=== PATIENT | male | born 1955 | race Caucasian/White ===

== ENCOUNTER 2020-12-04 08:14 | Outpatient (RCR) | payer BC, SELFPAY ==
[2016-10-15 09:25] VITALS: BMI 28.8
[2020-12-04] MEDS: COVID-19 VACC, MRNA(PFIZER)/PF 30 MCG/0.3 ML SYRINGE IM (06:58)
[2020-12-25] MEDS: COVID-19 VACC, MRNA(PFIZER)/PF 30 MCG/0.3 ML SYRINGE IM (06:59)
== END 2020-12-04 23:59 ==
LOC: IMMUN 08:14
PROVIDERS: PCP Family Medicine; Visit Provider Family Medicine
DX: Z23 Encounter for immunization (principal)
CPT/HCPCS: 0001A; 0002A; 91300

== ENCOUNTER → 2023-12-12 | Outpatient (CLI) | payer MEDICARE, SELFPAY ==
--- NOTE | 2023-12-12 16:40 | RAD_ITS ---
HISTORY: presurgical for pacemaker insertion. TECHNIQUE: XR Chest 2 Views. COMPARISON: 10/14/2016. FINDINGS: CARDIOMEDIASTINAL BORDERS: Cardiac silhouette within normal limits in size. Mediastinal contour unremarkable. LUNGS: Mild atelectasis or scarring in the lung bases. PLEURA: No pleural effusion or pneumothorax seen. OSSEOUS STRUCTURES: Old left eighth rib fracture. RAD/Chest PA and Lateral IMPRESSION: No acute cardiopulmonary process identified. Electronically Signed: Enid Farrell MD at 8:52 EDT ,
[2023-12-12 17:20] LABS: Absolute Lymphocyte Count 1.53 X10^3/uL (0.83-4.51); Absolute Neutrophil Count 4.5 X10^3/uL (2.0-7.7); Basophil# 0.03 X10^3/uL; Basophil% 0.4 % (0-1); Eosinophil# 0.13 X10^3/uL; Eosinophils% 1.9 % (0-5); Hematocrit 41.2 % (40-54); Hemoglobin 14.1 g/dL (13.0-16.5); Lymphocyte # 1.53 X10^3/ul (0.83-4.51); Lymphocyte % 22.1 % (19-41); Mean Corp Hgb Conc 34.2 g/dL (32-36); Mean Corpuscular Hgb 34.6 pg (27.0-32.0); Mean Platelet Vol. 8.9 fl (6.2-12.0); Monocyte# 0.75 X10^3/uL; Monocyte% 10.8 % (0-10); NRBC Flagged by Analyzer 0 % (0-5); Neutrophil # 4.47 X10^3/uL (2.7-7.7); Neutrophil % 64.5 % (47-70); Platelet Count 174 K/mm3 (150-450); RBC Distribution Width CV 12.8 % (11.6-14.6); RBC Distribution Width SD 47.4 fl (35.1-43.9); Red Blood Count 4.08 M/mm3 (4.6-6.2); White Blood Count 6.9 K/mm3 (4.4-11.0)
[2023-12-12 18:13] LABS: Anion Gap 5 (5-15); BUN 17 mg/dL (7-18); BUN/Creat Ratio 12.1 RATIO (10-20); Calcium,Total 8.9 mg/dL (8.5-10.1); Chloride 106 mmol/L (98-107); Creatinine, Serum 1.41 mg/dL (0.70-1.30); EST Glomerular Filtration Rate 53 mL/min (>60); Est Glom Filt Rate - Afr Amer 65 mL/min (>60); Glucose 182 mg/dL (74-106); Potassium 4.1 mmol/L (3.5-5.1); Sodium Level 139 mmol/L (136-145)
== END | disposition home or self-care (01) ==
PROVIDERS: PCP Family Medicine; Referring Provider Internal Medicine Cardiovascular Disease; Visit Provider Internal Medicine Cardiovascular Disease
DX: I44.2 Atrioventricular block, complete (principal); Z93.0 Tracheostomy status; I49.9 Cardiac arrhythmia, unspecified; I10 Essential (primary) hypertension
CPT/HCPCS: 36415; 71046; 80048; 85025

== ENCOUNTER → 2023-12-14 | Outpatient (CLI) | payer MEDICARE, SELFPAY ==
--- NOTE | 2023-12-14 13:49 | ECHOCS_ITS ---
Reason For Study: AV Block Procedure This was a 2D Doppler, Color Flow transthoracic echocardiogram. Contrast injection was performed. Exam performed in department. Left Ventricle Normal LV size. Left ventricular systolic function is normal. The estimated ejection fraction is 65 %. No regional wall motion abnormalities noted. Right Ventricle Normal RV size. Normal systolic function. Atria Normal left atrium. Normal right atrium. Mitral Valve Normal mitral valve. Tricuspid Valve Normal tricuspid valve. Mild to moderate (1-2+) tricuspid valve insufficiency. Pulmonary artery systolic pressure is 42 mmHg. Aortic Valve Trisinus/trileaflet aortic valve. Mild focal aortic valve calcification. Pulmonic Valve Normal pulmonic valve. Great Vessels Normal aortic root. The pulmonary artery is normal size. Normal inferior vena cava. Pericardium/Pleural No pericardial effusion. Medication Diluted definity 2ml given slow IV push to enhance endocardial definition. MMode/2D Measurements & Calculations LVIDd: 5.1 cm IVSd: 0.88 cm Ao root diam: 3.0 cm LVIDs: 2.9 cm LVPWd: 0.88 cm RVDd: 4.0 cm FS: 42.6 % LAV(MOD-bp): 54.8 ml LVAd ap4: 29.2 cm2 SV(MOD-sp4): 60.8 ml LAV(MOD-bp) Indexed: 24.0 ml/m2 LVLd ap4: 7.8 cm LAV(MOD-sp2): 69.3 ml EDV(MOD-sp4): 88.6 ml LAV(MOD-sp4): 43.4 ml EDV(sp4-el): 92.6 ml LVAs ap4: 14.7 cm2 LVLs ap4: 6.5 cm ESV(MOD-sp4): 27.8 ml ESV(sp4-el): 28.0 ml EF(MOD-sp4): 68.6 % EF(sp4-el): 69.8 % SV(sp4-el): 64.6 ml LA A4 area: 17.6 cm2 LA dimension(2D): 4.1 cm RA A4 area: 17.2 cm2 TAPSE: 2.6 cm Time Measurements MV dec time: 0.17 sec Doppler Measurements & Calculations MV E max lencho: 127.9 cm/sec Lat Peak E' Lencho: 11.1 cm/sec Med Peak E' Lencho: 9.4 cm/sec MV A max lencho: 83.1 cm/sec E/E' lat: 11.5 E/E' med: 13.6 MV E/A: 1.5 MV dec slope: 817.1 cm/sec2 Ao V2 max: 175.8 cm/sec LV V1 max: 133.6 cm/sec Ao max P.4 mmHg LV V1 max P.1 mmHg Ao V2 mean: 111.1 cm/sec Ao mean P.8 mmHg Ao V2 VTI: 38.9 cm PA V2 max: 101.6 cm/sec TR max lencho: 309.9 cm/sec TR max P.4 mmHg ECHO/Echo Complete W/ Contrast Interpretation Summary Normal LV size. Left ventricular systolic function is normal. The estimated ejection fraction is 65 %. Pulmonary artery systolic pressure is 42 mmHg. Contrast injection was performed. Ordering Physician: Renny Glover Referring Physician: Santos Davis Performed By: Arleth Scott, RDCS, RVT
== END | disposition home or self-care (01) ==
LOC: CVS 13:48
PROVIDERS: PCP Family Medicine; Referring Provider Internal Medicine Cardiovascular Disease; Visit Provider Internal Medicine Cardiovascular Disease
DX: I44.2 Atrioventricular block, complete (principal)
CPT/HCPCS: 93306; Q9957; A4216; C8929

== ENCOUNTER 2023-12-16 10:25 | Observation (INO) | payer MEDICARE, SELFPAY ==
[2023-12-15 09:09] VITALS: BMI 31.8
[2023-12-15 10:18] LABS: Bacteria 0 SEEN /hpf (None Seen); Mucous, Urine 0 SEEN /hpf (<or=2+); Red Blood Cells-Urine 0 SEEN /hpf (0-5); Squamous Epithelial Cells - UA 0 SEEN /hpf (0-5); White Blood Cells 0 SEEN /hpf (0-5)
[2023-12-15 11:17] LABS: Color, Urine Yellow (Yellow); Glucose, Dipstick 250 mg/dl (Normal); Ketone-Dipstick Negative (Negative); Leukocyte Esterase-Dipstick Negative /ul (Negative); Nitrite-Dipstick Negative (Negative); Occult Blood-Urine Negative /ul (Negative); Protein-Dipstick 30 mg/dl (Negative); Specific Gravity, Urine 1.005 (1.002-1.030); Urine Bilirubin Dipstick Negative (Negative); Urine Clarity Clear (Clear); Urine Urobilinogen Normal (Normal)
--- NOTE | 2023-12-16 10:45 | CL.IE_ITS ---
Patient: DULCE HORTON Study Date: 12/16/2023 Performing: Renny Glover MD : [id number] Age: 67 Gender: male PROCEDURES PERFORMED LP04-([id number])INITIAL PACER INSERT+DUAL LEADS INDICATIONS Atrial fibrillation and complete heart block PROCEDURE DETAILS The patient was brought to the Catheterization Lab in the postabsorptive nonsedated state. Informed consent was obtained prior to the procedure. Local anesthetic was given subcutaneously to the left subclavian region with Lidocaine 2%. Access was achieved and a guidewire was advanced into the left subclavian vein. Incision was made to the left subclavicular area. A peel-away sheath was inserted into the left subclavian vein. PPM ventricular lead was inserted / positioned to right ventricular apex. The sheath was then removed. PPM ventricular lead testing performed. PPM ventricular lead testing performed. A peel-away sheath was inserted into the left subclavian vein. PPM atrial lead was inserted / positioned to the right atrial appendage. The sheath was then removed. PPM atrial lead testing performed. PPM atrial lead was repositioned and checked. PPM atrial lead was repositioned and checked. The Ventricular PM lead sutured in place with 2-0 Silk. The Atrial lead sutured in place with 2-0 Silk. Device pocket was irrigated with antibiotic. PPM generator was attached to the lead(s) and inserted into the pocket. The PPM generator was sutured in place with 2-0 Silk. Subcutaneous closure was completed with 3-0 Vicryl. PPM generator was then interrogated by the edi programmer. Skin closure was completed with 4-0 Vicryl. Steri-strips applied to left subclavicular incision. The patient tolerated the procedure well. Estimated Blood Loss: 20 ml's IMPLANTED / EX-PLANTED DEVICES IMPLANTED DEVICE(S): PPM Ventricular lead - Vice Principal: SDI, Model # INGEVITY , Serial # [id number] PPM Atrial lead - Vice Principal: [employer], Model # INGEVITY , Serial # [id number] PPM Generator - Vice Principal: SDI, Model # ESSENTION MRI DR MODELL L111 , Serial # [id number] DEVICE PARAMETERS ATRIAL LEAD PARAMETERS: P wave- 0.5 (mV) Current- 1.3 (mA) threshold- 0.70 (V) impedence- 543 (OHMS) VENTRICULAR LEAD PARAMETERS: R wave- 3.5 (mV) Current- 0.8 (mA) threshold- 0.6 (V) impedence- 740 (OHMS) DEVICE PARAMETERS: Mode- DDD Lower rate- 60 Upper rate- 130 CONCLUSIONS / RECOMMENDATIONS Device Conclusions: Successful implantation of a dual chamber pacemaker Device Recommendations: Follow up with Primary Care Physician PROCEDURE MEDICATIONS Fentanyl 50 mcg IV Versed 1 mg IV Versed 1 mg IV Oxygen: 2 L/min via trach collar Antibiotic given in appropriate timeframe. Ancef 2 Gm IV @ 12/16/2023 09:02:29 Signed By Renny Glover MD On 12/16/2023 10:44:21 Renny Glover MD
[2023-12-16 10:56] VITALS: BP 185/97; PULSE 91; RESP 16; TEMP 36.7; O2SAT 100; BMI 31.8
--- NOTE | 2023-12-16 16:47 | DCINST_ITS ---
Discharge Instructions Diet Discharge Diet: No restrictions (as you feel able. No excessive stretching. No lifting your arm over your head (keep elbow below shoulder level) until seen for your pacemaker check. Do not lift your elbow away from your side until you are seen for your first visit. Keep the arm sling on if it helps remind you not to lift your arm.) Activity Discharge Activity: May Not Drive May shower in (days): 2 Additional Activity Instructions:: May shower or bathe on [day 3]. Do not scrub the incision or soak in the tub. Just wash with soap and let the water run over the incision. Gently pat dry with towel. Medications: Take your pain medication as directed. Refer to your discharge instruction sheet for a list of medications you are to take. Dressing / Incision Call your doctor if your incision/area has: Continuous Slow Oozing, Sudden Increased Bleeding, Increased Pain/ Swelling, Increased Redness, Foul Smelling Discharge and Swelling at the incision site Call your doctor if you observe: Fever of 101 or Higher, Shortness of breath, Dizziness, Fainting spells, Swelling in the ankles, Chest pain, Prolonged hiccupping and Increased palpitations (irregular heartbeat) Suture Line Care: Avoid Pulling/Pushing and Avoid Pinching/Bending Cleanse incision/area with: Keep Dressing Clean & Dry Additional Dressing/Incision Instructions:: When dressing is removed, wash and dry incision. Keep covered with a light bandage if it is rubbing against your clothing. Do not cover the incision with an airtight bandage. Change the bandage daily. Do not remove steri strips. The strips will fall off on their own. Follow Up Care Please Follow Up With: Renny lGover MD When: Pacer follow-up on December 27 at 9 AM of the [facility] office Test Results: Test results from this visit will be discussed in further detail at your follow- up appointment, if applicable. Discharge Plan Admission Admit Date/Time: 12/16/23 10:25 Attending Provider: Renny Glover Primary Care Provider: Santos Davis Discharge Orders/Prescriptions Prescriptions: No Action levothyroxine 88 mcg capsule 88 mcg PO DAILY metformin 500 mg tablet 500 mg PO DAILY spironolactone 50 mg tablet 50 mg PO DAILY aspirin 81 mg tablet,delayed release (DR/EC) 162 mg PO DAILY [id number]-fish oil 300-500 mg capsule 1 cap PO DAILY multivitamin Tablet 1 tab PO DAILY amlodipine 5 mg tablet 5 mg PO DAILY lisinopril [Zestril] 40 MG tablet 40 mg PO DAILY Patient Comments: blood pressure Referrals / Follow Up: Santos Davis MD [Primary Care Provider] -
[2023-12-16] MEDS: Lisinopril 40 MG Tablet PO (18:11)
[2023-12-16] MEDS: amLODIPine 5 MG Tablet PO (18:11)
[2023-12-16 21:44] VITALS: BP 175/85; PULSE 88; RESP 16; TEMP 37.3; O2SAT 95
[2023-12-17 04:37] VITALS: BP 145/80; PULSE 82; RESP 16; TEMP 36.6; O2SAT 95
--- NOTE | 2023-12-17 04:48 | RAD_ITS ---
HISTORY: Post permanent ICD/Pacemaker -- inspiration/expiration. Arms Down. Wet read to . TECHNIQUE: XR Chest 2 Views. COMPARISON: 12/12/2023. FINDINGS: CARDIOMEDIASTINAL BORDERS: Cardiac silhouette within normal limits in size. Mediastinal contour unremarkable. Pacemaker generator in the left chest wall with lead extending to the expected region of the right atrium and right ventricle, with nondiagnostic lateral view of the pacemaker due to upper extremity positioning. LUNGS: Coarse chronic interstitial markings the lungs again seen. PLEURA: No pleural effusion or pneumothorax seen. OSSEOUS STRUCTURES: Mild degenerative change. RAD/Chest PA and Lateral IMPRESSION: Satisfactory appearance of pacemaker. Electronically Signed: Enid Farrell MD at 15:53 EDT ,
[2023-12-17 08:21] VITALS: BP 175/85; PULSE 96; RESP 16; TEMP 37.1; O2SAT 94
[2023-12-17] MEDS: amLODIPine 5 MG Tablet PO (08:25)
[2023-12-17] MEDS: Spironolactone 50 MG Tablet PO (08:26)
[2023-12-17] MEDS: metFORMIN (XR) 500 MG Tablet PO (08:26)
[2023-12-17] MEDS: Levothyroxine 88 MCG Tablet PO (08:26)
[2023-12-17] MEDS: Lisinopril 40 MG Tablet PO (08:26)
[2023-12-17] MEDS: Aspirin E.C. 81 MG Tablet 162 MG PO (08:26)
== END 2023-12-17 10:14 | disposition home or self-care (01) ==
LOC: PCU 10:52
PROVIDERS: Admitting Provider Internal Medicine Cardiovascular Disease; PCP Family Medicine; Referring Provider Family Medicine; Visit Provider Internal Medicine Cardiovascular Disease
DX: Z45.018 Encounter for adjustment and management of other part of cardiac pacemaker (principal); Z93.0 Tracheostomy status; I48.91 Unspecified atrial fibrillation; I44.2 Atrioventricular block, complete; I10 Essential (primary) hypertension; I45.10 Unspecified right bundle-branch block; Z79.899 Other long term (current) drug therapy; Z79.84 Long term (current) use of oral hypoglycemic drugs; Z79.82 Long term (current) use of aspirin; R73.9 Hyperglycemia, unspecified; Z87.891 Personal history of nicotine dependence
CPT/HCPCS: 33208; 71046; 81001; 99152; 99153; 99221; 99406; J7040; J7050; C1894; G0378

== ENCOUNTER 2024-02-22 14:30 | Outpatient (RCR) | payer MEDICARE, SELFPAY ==
[2024-02-17 08:20] VITALS: BP 167/76; PULSE 104; RESP 18; TEMP 36.8; BMI 66.6
--- NOTE | 2024-02-17 12:09 | PCM.WC.HP ---
History of Present Illness Date of Service: 02/17/24 Chief Complaint: left chest non-healing surgical wound History of Wound: Primitivo is a 68 yo gentleman that presents to the wound healing center today for evaluation and treatment of a left chest wall surgical wound that has opened after suture removal and is not healing. This is at the site of a pacemaker placement on 12/16/2023 at [facility] by Dr. Glover. He noted drainage and possible infection and went to ER at [facility] on 01/25/2024. He was started on IV antibiotics with Vancomycin and the battery and pacemaker leads were removed and debridement of the pocket was done on 01/27/2024 and a temporary pacemaker was placed in his right chest. The new battery was placed in his right chest on 02/01/2024. He was switched to Ancef while in the hospital for MSSA once cultures were back from removal of the original pacemaker of his left chest wall and discharged on Cefadroxil orally to be completed on 02/10/24. He was seen on 02/14/2024 by Janae Mcduffie and his sutures were removed (4). The pocket was draining brown/bloody fluid and he was referred for treatment by Janae Mcduffie. He has been using bandage to keep the wound covered and cleaned it with surgical scrub. Primitivo reports not having any problems with wound healing in the past and the right chest wall incision from the more recent pacemaker battery placement is healing well. He does have a history of diabetes that is controlled with diet and he is not able to recall his most recent A1C. 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 [facility] Medical History Laryngeal squamous cell carcinoma Presence of cardiac pacemaker Tracheostomy dependent Complete heart block Ventricular arrhythmia Essential (primary) hypertension Hyperglycemia Allergic rhinitis Home Medications ?Medication ?Instructions ?Recorded ?Last Taken ?Type lisinopril 40 mg tablet (Zestril) 40 mg PO DAILY 10/15/16 12/16/23 History amlodipine 5 mg tablet 5 mg PO DAILY 12/12/23 12/16/23 History aspirin 81 mg tablet,delayed 162 mg PO DAILY 12/12/23 Unknown History release levothyroxine 88 mcg capsule 88 mcg PO DAILY 12/12/23 12/16/23 History metformin 500 mg tablet 500 mg PO DAILY 12/12/23 Unknown History multivitamin 1 tab PO DAILY 12/12/23 Unknown History omega-3s 300 dj-hyo-qyh-other 1 cap PO DAILY 12/12/23 Unknown History [id number] oil 500 mg capsule spironolactone 50 mg tablet 50 mg PO DAILY 12/12/23 12/16/23 History Allergy/AdvReac Type Severity Reaction Status Date / Time No Known Allergies Allergy Verified 12/12/23 15:38 Family History Other CHF (congestive heart failure) Heart disease Surgical History Hx of tonsillectomy Social History Smoking Status: Former smoker Tobacco: How many years used: 35 alcohol intake: current alcohol intake frequency: 0-2 drinks per day Alcohol type: beer details: 21 cans of beer (12 oz) per week substance use type: does not use ROS Constitutional Constitutional: Denies chills, fatigue or fever(s) Eyes Eyes: Denies blurry vision, change in vision or loss of vision ENT HEENT: Denies dysphagia, hearing loss or sore throat Cardiovascular Cardiovascular: Denies chest pain, edema or palpitations Respiratory/Chest Respiratory/Chest: Denies dry cough, dyspnea, dyspnea on exertion, productive cough or wheezing Gastrointestinal Gastrointestinal: Denies diarrhea, nausea or vomiting Genitourinary Genitourinary: Denies dysuria or polyuria Musculoskeletal Musculoskeletal: Denies arthralgias, joint stiffness or muscle weakness Integumentary Integumentary: Reports erythema and wounds Neurologic Neurologic: Denies dizziness, memory loss or weakness Psychiatric Psychiatric: Denies homicidal ideation or suicidal ideation Endocrine Endocrinology: Denies polydipsia, polyphagia or polyuria Hematologic/Lymphatic Hematologic/Lymphatic: Denies easy bleeding or easy bruising Allergic/Immunologic Allergic/Immunologic: Denies throat swelling, tongue swelling or urticaria Vital Signs Vital Signs Vital Signs: 02/17/24 08:20 Temperature 98.3 F Temperature Source Temporal Pulse Rate 104 H Respiratory Rate 18 Blood Pressure 167/76 H Blood Pressure Mean 106 Blood Pressure Source Monitor Blood Pressure Position Sitting Blood Pressure Location Left Arm Oxygen Delivery Method Room Air Weight Weight: 223 kg Body Mass Index (BMI) 66.6 Physical Exam Const alert, oriented x3 and no apparent distress General Appearance: cooperative and comfortable HEENT normocephalic and head/scalp atraumatic Chest Chest: wounds and left pectoral incision Resp normal respiratory effort Effort and Inspection: able to speak in complete sentences Cardio regular rate and regular rhythm Skin Wounds: wounds noted Wound Narrative: as in clinical panel Psych mental status grossly normal, thought process normal, cooperative and affect normal Debridement Note Debridement Note Wound debrided: left upper chest Laterality: Left Type of Debridement: Excisional debridement Anesthesia Used: 4% Lidocaine Solution and Cetacaine Depth: Down to and including healthy tissue, in the subcutaneous layer and to muscle Percentage of wound debrided: 100 Instrument Used: 5mm curette, #15 blade and Forceps Tissue Removed: Yellow slough, devitalized tissue Severity: Fat Layer Exposed Amount of bleeding with debridement: Mild Bleeding Controlled with: Compression and gauze Patient tolerated procedure: Patient tolerated procedure well Post-Debridement Measurements and Additional Note: Post-Debridement Measurements/Treatment WC - Nurse 1 - General Ulcer Assessment Start: 02/17/24 08:20 Freq: Status: Active Protocol: AMARI.LOWARGELIAT Activity Type Activity Date Activity User E-sign Co-sign Detail Recorded Client Recorded Date Recorded By Document 02/17/24 08:20 KW wound care 02/17/24 08:30 KW 02/17/24 08:20 WC - Today's Visit Information Type of service Follow-up Visit (Physician/CHILD NUTRITION ASSISTANT ) Arrival Mode Ambulatory Patient Identification Verified (Name & Yes ) Height and Weight Height 6 ft Weight 223 kg Weight in Pounds 491.6 lbs Weight Measurement Method Estimated by Patient Body Mass Index (BMI) 66.6 BMI Classification Obese BSA - Monty 3.12 Vital Signs Temperature (97.8 F-99.1 F) 98.3 F Temperature Source Temporal Pulse Rate (60-100) 104 H Pulse Location Monitor Respiratory Rate (12-18) 18 Respiratory rate source Observation Oxygen Delivery Method Room Air Blood Pressure (90/60-120/80) 167/76 H Blood Pressure Mean 106 Source Monitor Position Sitting Blood Pressure Location Left Arm History Since Last Visit- (Skip if this is Patient's initial visit) Left Footwear Regular Shoe Right Footwear Regular Shoe Pain Scale: 0-10 Numeric Is Patient Pain Free? Yes WC - Nurse 1 - General Ulcer Measurement Start: 02/17/24 08:20 Freq: Status: Active Protocol: Activity Type Activity Date Activity User E-sign Co-sign Detail Recorded Client Recorded Date Recorded By Document 02/17/24 08:20 KW wound care 02/17/24 08:30 KW 02/17/24 08:20 Wound Center Nurse 1 #1 POST OP CHEST INCISION -Current Size (cm) - Length 3.8 -Current Size (cm) - Width 0.6 -Current Size (cm) - Depth 1 -Total Square Cm 2.28 -Date of Last Picture (Recall this 02/17/24 field) -Circular Undermining Yes -Exudate Amt Small -Exudate Type Serosanguineous -Wound Margin Distinct, Outline Attached -Granulation Amt Large (67-100%) -Granulation Quality Red -Necrosis Amt Medium (34-66%) -Necrotic Tissue Type Adherent Slough -Texture ([place]-wound Skin Appearance) Assessed -Moisture ([place]-wound Skin Appearance) Assessed -Color ([place]-wound Skin Appearance) Assessed -Temperature ([place]-wound Skin No Abnormality Appearance) (Pt Warm) -Tenderness on Palpation ([place]-wound No Skin Appearance) -Ulcer Cleansing Rinsed/ Irrigated with Saline -Foul Odor after Cleansing No -Anesthetic Used 4% Lidocaine Solution - Nurse 2 - General Ulcer CM Notes Start: 02/17/24 08:20 Freq: Status: Active Protocol: Activity Type Activity Date Activity User E-sign Co-sign Detail Recorded Client Recorded Date Recorded By Document 02/17/24 08:57 GM 02/17/24 09:29 GM 02/17/24 08:57 Wound Center Nurse 2 -Time 08:57 -Correct Patient Yes -Correct Side, Site, Position Yes -Correct Procedure Yes -Procedure Performed Yes -Type of Procedure Debridement -Clinical Debridement Subcutaneous -Tissue Removed Subcutaneous -Post Debridement (cm) - Length 3.0 -Post Debridement (cm) - Width 1.0 -Post Debridement (cm) - Depth 1.0 -Total Square (Post) (cm) 3.00 -Area of Debridement (cm) - Length 3.0 -Area of Debridement (cm) - Width 1.0 -Total Square (Area) (cm) 3.00 -Tunneling Yes -Tunneling Position (O'clock) 8 -Tunneling Distance (cm) 3.1 -Undermining/Tunneling No -Wound/Ulcer Outcome Not Healed -Ulcer Cleansing Rinsed/ Irrigated with Saline -Foul Odor after Cleansing No -Bioengineered Tissue No -Bleeding Controlled with Pressure -Treatment Response Procedure Tolerated Well -Debridement - Subq, 1st 20sq cm Yes Pain Scale: 0-10 Numeric Is Patient Pain Free? Yes WC - Nurse 3 - General Ulcer D/C NN Start: 02/17/24 08:20 Freq: Status: Active Protocol: Activity Type Activity Date Activity User E-sign Co-sign Detail Recorded Client Recorded Date Recorded By Document 02/17/24 09:48 KW wound care 02/17/24 09:48 KW 02/17/24 09:48 Wound Care Center Nurse 3 #1 POST OP CHEST INCISION -Primary Dressing Applied Aquacel AG 4x4, Mepilex Border -Aquacel AG 4x4 2 -Mepilex Border 1 Pain Scale: 0-10 Numeric Is Patient Pain Free? Yes WC - Visit Discharge Discharge Condition Stable Ambulatory Status Ambulatory Transportation Private Auto Medication Reconcilliation completed & No provided to patient/care provider Clinical Summary of Care Provided Yes Assessment/Plan Assessment/Plan (1) Presence of cardiac pacemaker: CODE(S): Z95.0 - Presence of cardiac pacemaker (2) Tracheostomy dependent: CODE(S): Z93.0 - Tracheostomy status (3) Essential (primary) hypertension: CODE(S): I10 - Essential (primary) hypertension (4) Nonhealing surgical wound: CODE(S): T81.89XA - Other complications of procedures, not elsewhere classified, initial encounter QUALIFIERS: Encounter type: subsequent encounter Qualified Code(s): T81.89XD - Other complications of procedures, not elsewhere classified, subsequent encounter (5) Ulcer of chest wall with fat layer exposed: CODE(S): L98.492 - Non-pressure chronic ulcer of skin of other sites with fat layer exposed (6) Diabetes: CODE(S): E11.9 - Type 2 diabetes mellitus without complications QUALIFIERS: Diabetes mellitus type: type 2 Diabetes mellitus termite inspector insulin use: without termite inspector use Diabetes mellitus complication status: with skin complications Diabetes mellitus complication detail: with other skin ulcer Qualified Code(s): E11.622 - Type 2 diabetes mellitus with other skin ulcer PLAN: Plan Debridement performed today in clinic as annotated above. At home wound-care instructions: Due to the significant undermining of his left chest wall ulcer cavity, he would benefit from treatment with a wound vac. Snap-vac would be a good option due to the location and giving him more mobility. If drainage is excessive or he is not able to maintain negative pressure with the Snap-vac then a traditional wound vac would be recommended. We will apply for use of this through his insurance. Will treat him with packing of the pocket with Aquacel Ag and covering with foam bordered silicone dressing until we hear back on the Snap vac authorization. Keep dressing clean and dry. Off-loading: The patient was instructed to avoid pressure and friction on the affected areas. Reposition every 2 hours at minimum. Avoid prolonged standing and/or dangling of legs. When seated, feet should be elevated at chest level. Frequent ambulation is encouraged. Diet: Patient encouraged to increase protein intake while taking caution to avoid high carbohydrate and/or sugar intake. Labs/cultures/imaging: Wound culture taken today to evaluate for infection. Follow-up: Return in 2 weeks for wound care follow up and in 1 week for nurse visit to apply Snap wound vac. Return sooner or report to the emergency room should symptoms worsen, or new symptoms arise. Note: [employer] speech recognition nurse sitter software was used to create portions of this document. Sound-alike and misspelled words, as well as other nurse sitter errors may be contained in the documentation.
--- NOTE | 2024-02-21 12:02 | WC ---
02/17/2024 (I) LEFT UPPER CHEST
[2024-02-22 14:49] VITALS: BMI 66.6
== END 2024-02-24 23:59 | disposition home or self-care (01) ==
LOC: WC 14:30
PROVIDERS: PCP Family Medicine; Referring Provider Physician Assistant Medical; Visit Provider Family Medicine
DX: E11.622 Type 2 diabetes mellitus with other skin ulcer (principal); Z93.0 Tracheostomy status; L98.492 Non-pressure chronic ulcer of skin of other sites with fat layer exposed; Z79.84 Long term (current) use of oral hypoglycemic drugs; I10 Essential (primary) hypertension; T81.89XA Other complications of procedures, not elsewhere classified, initial encounter; Z87.891 Personal history of nicotine dependence; Z79.82 Long term (current) use of aspirin; Z95.0 Presence of cardiac pacemaker; Y83.1 Surgical operation with implant of artificial internal device as the cause of abnormal reaction of the patient, or of later complication, without mention of misadventure at the time of the procedure; Z79.899 Other long term (current) drug therapy
CPT/HCPCS: 11042; 87070; 87075; 87077; 87186; 87205; 97607; 99213; G0463

== ENCOUNTER 2024-03-23 08:30 | Outpatient (RCR) | payer MEDICARE, SELFPAY ==
[2024-02-25 02:41] VITALS: BP 167/76; PULSE 104; RESP 18; TEMP 36.8; BMI 66.6
[2024-02-27 08:37] VITALS: BP 134/74; PULSE 101; RESP 18; TEMP 37.1; BMI 66.6
[2024-03-02 08:37] VITALS: BP 135/64; PULSE 104; RESP 18; BMI 66.6
--- NOTE | 2024-03-02 12:09 | PCM.WC.PN ---
History of Present Illness Date of Service: 03/02/24 Chief Complaint: left chest non-healing surgical wound History of Wound: Primitivo is a 68 yo gentleman that presents to the wound healing center today for evaluation and treatment of a left chest wall surgical wound that has opened after suture removal and is not healing. This is at the site of a pacemaker placement on 12/16/2023 at [facility] by Dr. Glover. He noted drainage and possible infection and went to ER at [facility] on 01/25/2024. He was started on IV antibiotics with Vancomycin and the battery and pacemaker leads were removed and debridement of the pocket was done on 01/27/2024 and a temporary pacemaker was placed in his right chest. The new battery was placed in his right chest on 02/01/2024. He was switched to Ancef while in the hospital for MSSA once cultures were back from removal of the original pacemaker of his left chest wall and discharged on Cefadroxil orally to be completed on 02/10/24. He was seen on 02/14/2024 by Janae Mcduffie and his sutures were removed (4). The pocket was draining brown/bloody fluid and he was referred for treatment by Janae Mcduffie. He has been using bandage to keep the wound covered and cleaned it with surgical scrub. Primitivo reports not having any problems with wound healing in the past and the right chest wall incision from the more recent pacemaker battery placement is healing well. He does have a history of diabetes that is controlled with diet and he is not able to recall his most recent A1C. 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 Subjective Subjective Primitivo returns today for follow up of chest wall ulcer that is from pocket that pacemaker was removed from. His wound culture from initial visit was positive for infection and he is taking antibiotics for treatment. He is tolerating these well. He had Snap vac placed last week and has had it changed once this week. He is tolerating this well with significant improvement of the size of his chest wall ulcer. He denies any increased drainage, fever, chills, erythema. Objective Data Objective Data Vital Signs: Vital Signs Temp Pulse Resp BP O2 Del Method 98.8 F 104 H 18 135/64 H Room Air 02/27/24 08:37 03/02/24 08:37 03/02/24 08:37 03/02/24 08:37 03/02/24 08:37 Oxygen Delivery Method Room Air Weight: 223 kg Body Mass Index (BMI) 66.6 Physical Exam Const alert, oriented x3 and no apparent distress General Appearance: cooperative and comfortable HEENT normocephalic and head/scalp atraumatic Resp normal respiratory effort Effort and Inspection: able to speak in complete sentences Cardio regular rate and regular rhythm Skin Wounds: wounds noted Wound Narrative: as in clinical panel Psych mental status grossly normal, thought process normal, cooperative and affect normal Debridement Note Debridement Note Wound debrided: left upper chest Laterality: Left Type of Debridement: Excisional debridement Anesthesia Used: 4% Lidocaine Solution and 5% Lidocaine Gel Depth: Down to and including healthy tissue and in the subcutaneous layer Percentage of wound debrided: 100 Instrument Used: 5mm curette, #11 blade and Forceps Tissue Removed: retained suture and yellow slough, devitalized tissue Severity: Fat Layer Exposed Amount of bleeding with debridement: Mild Bleeding Controlled with: Compression and gauze Patient tolerated procedure: Patient tolerated procedure well Post-Debridement Measurements and Additional Note: Post-Debridement Measurements/Treatment - Nurse 1 - General Ulcer Assessment Start: 02/27/24 08:37 Freq: Status: Active Protocol: AMARI.[email or web address] Activity Type Activity Date Activity User E-sign Co-sign Detail Recorded Client Recorded Date Recorded By Document 02/27/24 08:37 KW wound center 02/27/24 08:47 KW Document 03/02/24 08:37 KW wound center 03/02/24 08:52 KW 02/27/24 03/02/24 08:37 08:37 - Today's Visit Information Type of service Nurse-only Follow-up Visit Visit (Physician/[employer] ) Arrival Mode Ambulatory Ambulatory Patient Identification Verified (Name & Yes Yes ) Height and Weight Body Mass Index (BMI) 66.6 66.6 BMI Classification Obese Obese Vital Signs Temperature (97.8 F-99.1 F) 98.8 F Temperature Source Temporal Pulse Rate (60-100) 101 H 104 H Pulse Location Monitor Respiratory Rate (12-18) 18 18 Respiratory rate source Observation Observation Oxygen Delivery Method Room Air Room Air Blood Pressure (90/60-120/80) 134/74 H 135/64 H Blood Pressure Mean (mm Hg) 94 87 Source Monitor Monitor Position Sitting Sitting Blood Pressure Location Left Arm Left Arm History Since Last Visit- (Skip if this is Patient's initial visit) Have you changed medications since your No No last visit? Any new allergies or adverse reactions No No Had a fall/change in ADL's that may No No increase risk of falls Signs or symptoms of abuse and/or No No neglect since last visit Have you been in the hospital since your No No last visit? Has dressing in place as prescribed Yes Yes Has compression in place as prescribed N/A N/A Has offloadiing in place as prescribed N/A N/A Experienced any changes in pain level or No No management Left Footwear Regular Shoe Regular Shoe Right Footwear Regular Shoe Regular Shoe Pain Scale: 0-10 Numeric Is Patient Pain Free? Yes Yes WC - Nurse 1 - General Ulcer Measurement Start: 02/27/24 08:37 Freq: Status: Active Protocol: Activity Type Activity Date Activity User E-sign Co-sign Detail Recorded Client Recorded Date Recorded By Document 02/27/24 08:47 wound center 02/27/24 08:48 KW Document 03/02/24 08:37 wound center 03/02/24 08:52 KW 02/27/24 03/02/24 08:47 08:37 Wound Center Nurse 1 #1 POST OP CHEST INCISION -Current Size (cm) - Length 1.5 2.2 -Current Size (cm) - Width 1.4 1.2 -Current Size (cm) - Depth 0.7 0.4 -Total Square Cm 2.10 2.64 -Tunneling Yes -Tunneling Position (O'clock) 11 -Tunneling Distance (cm) 0.7 -Undermining/Tunneling Yes -Undermining/Tunneling Starts (O'clock 4 ) -Undermining/Tunneling Ends (O'clock) 8 -Maximum Distance (cm) 2.2 -Exudate Amt None Present Medium -Exudate Type Serous Serosanguineous -Wound Margin Thickened & Distinct, Rolled Under Outline Attached -Granulation Amt Small (1-33%) Large (67-100%) -Granulation Quality [place] -Slough/Fibrin Yes -Necrosis Amt Medium (34-66%) Small (1-33%) -Necrotic Tissue Type Adherent Slough Adherent Slough -Texture ([place]-wound Skin Appearance) Assessed Assessed -Moisture ([place]-wound Skin Appearance) Assessed Assessed -Color ([place]-wound Skin Appearance) Assessed Assessed, Erythema -Temperature ([place]-wound Skin No Abnormality No Abnormality Appearance) (Pt Warm) (Pt Warm) -Tenderness on Palpation ([place]-wound No No Skin Appearance) -Ulcer Cleansing Soap and Water Soap and Water -Foul Odor after Cleansing No -Anesthetic Used 5% Lidocaine Gel - Nurse 2 - General Ulcer CM Notes Start: 02/27/24 08:37 Freq: Status: Active Protocol: Activity Type Activity Date Activity User E-sign Co-sign Detail Recorded Client Recorded Date Recorded By Document 03/02/24 08:55 [facility] 03/02/24 09:06 03/02/24 08:55 Wound Center Nurse 2 -Time 08:56 -Correct Patient Yes -Correct Side, Site, Position Yes -Correct Procedure Yes -Procedure Performed Yes -Type of Procedure Debridement -Clinical Debridement Subcutaneous -Tissue Removed Subcutaneous -Post Debridement (cm) - Length 2.0 -Post Debridement (cm) - Width 1.1 -Post Debridement (cm) - Depth 0.4 -Total Square (Post) (cm) 2.20 -Area of Debridement (cm) - Length 2.0 -Area of Debridement (cm) - Width 1.1 -Total Square (Area) (cm) 2.20 -Tunneling Yes -Tunneling Position (O'clock) 8 -Tunneling Distance (cm) 1.3 -Undermining/Tunneling No -Circular Undermining No -Wound/Ulcer Outcome Not Healed -Ulcer Cleansing Rinsed/ Irrigated with Saline -Foul Odor after Cleansing No -Bioengineered Tissue No -Bleeding Controlled with Pressure -Treatment Response Procedure Tolerated Well -Debridement - Subq, 1st 20sq cm Yes Pain Scale: 0-10 Numeric Is Patient Pain Free? Yes - Nurse 3 - General Ulcer D/C NN Start: 02/27/24 08:37 Freq: Status: Active Protocol: Activity Type Activity Date Activity User E-sign Co-sign Detail Recorded Client Recorded Date Recorded By Document 02/27/24 08:37 KW wound center 02/27/24 08:47 KW Document 03/02/24 09:29 RB wound center 03/02/24 09:30 RB 02/27/24 03/02/24 08:37 09:29 Vital Signs Temperature (97.8 F-99.1 F) 98.8 F Temperature Source Temporal Pulse Rate (60-100) 101 H Pulse Location Monitor Respiratory Rate (12-18) 18 Respiratory rate source Observation Oxygen Delivery Method Room Air Blood Pressure (90/60-120/80) 134/74 H Blood Pressure Mean (mm Hg) 94 Source Monitor Position Sitting Blood Pressure Location Left Arm Pain Scale: 0-10 Numeric Is Patient Pain Free? Yes Yes Wound Care Center Nurse 3 #1 POST OP CHEST INCISION -Ulcer Cleansing Soap and Water Rinsed/ Irrigated with Saline -Negative Pressure Wound Therapy Continue Continue -Setting (mmHg) 125 125 -Negative Pressure is Continuous Continuous -NPWT Application Charge NPWT > 50 sq cm NPWT & (disp) ($) Debridement (nc ) -Wound Comment(s) snap vac applied Treatment Response Procedure Tolerated Well WC - Visit Discharge Discharge Condition Stable Stable Ambulatory Status Ambulatory Ambulatory Transportation Private Auto Private Auto Medication Reconcilliation completed & No No provided to patient/care provider Clinical Summary of Care Provided Yes Yes Assessment/Plan Assessment/Plan (1) Presence of cardiac pacemaker: CODE(S): Z95.0 - Presence of cardiac pacemaker (2) Tracheostomy dependent: CODE(S): Z93.0 - Tracheostomy status (3) Essential (primary) hypertension: CODE(S): I10 - Essential (primary) hypertension (4) Nonhealing surgical wound: CODE(S): T81.89XA - Other complications of procedures, not elsewhere classified, initial encounter QUALIFIERS: Encounter type: subsequent encounter Qualified Code(s): T81.89XD - Other complications of procedures, not elsewhere classified, subsequent encounter (5) Ulcer of chest wall with fat layer exposed: CODE(S): L98.492 - Non-pressure chronic ulcer of skin of other sites with fat layer exposed (6) Diabetes: CODE(S): E11.9 - Type 2 diabetes mellitus without complications QUALIFIERS: Diabetes mellitus type: type 2 Diabetes mellitus care home insulin use: without saw edge fuser circular use Diabetes mellitus complication status: with skin complications Diabetes mellitus complication detail: with other skin ulcer Qualified Code(s): E11.622 - Type 2 diabetes mellitus with other skin ulcer PLAN: Plan Debridement performed today in clinic as annotated above. At home wound-care instructions: He is tolerating treatment with Snap-vac and has had significant improvement in the undermining of the cavity of his chest ulcer. Will continue Snap-vac therapy with plan to change it on Tuesday next week. Keep dressing clean and dry. Off-loading: The patient was instructed to avoid pressure and friction on the affected areas. Reposition every 2 hours at minimum. Avoid prolonged standing and/or dangling of legs. When seated, feet should be elevated at chest level. Frequent ambulation is encouraged. Diet: Patient encouraged to increase protein intake while taking caution to avoid high carbohydrate and/or sugar intake. Labs/cultures/imaging: Wound culture was positive for infection and he has been taking antibiotics and tolerating them well. Follow-up: Return in 1 week for wound care follow up and on Tuesday for nurse visit to apply Snap wound vac. Return sooner or report to the emergency room should symptoms worsen, or new symptoms arise. Note: [employer] speech recognition grain thresher software was used to create portions of this document. Sound-alike and misspelled words, as well as other grain thresher errors may be contained in the documentation.
[2024-03-06 08:23] VITALS: BP 146/79; PULSE 99; RESP 18; TEMP 36.7; BMI 66.6
[2024-03-09 08:47] VITALS: BP 153/83; PULSE 107; RESP 18; TEMP 36.1; BMI 66.6
--- NOTE | 2024-03-09 12:56 | PN.PCM_ITS ---
History of Present Illness Date of Service: 03/09/24 Chief Complaint: left chest non-healing surgical wound History of Wound: Primitivo is a 68 yo gentleman that presents to the wound healing center today for evaluation and treatment of a left chest wall surgical wound that has opened after suture removal and is not healing. This is at the site of a pacemaker placement on 12/16/2023 at [facility] by Dr. Glover. He noted drainage and possible infection and went to ER at [facility] on 01/25/2024. He was started on IV antibiotics with Vancomycin and the battery and pacemaker leads were removed and debridement of the pocket was done on 01/27/2024 and a temporary pacemaker was placed in his right chest. The new battery was placed in his right chest on 02/01/2024. He was switched to Ancef while in the hospital for MSSA once cultures were back from removal of the original pacemaker of his left chest wall and discharged on Cefadroxil orally to be completed on 02/10/24. He was seen on 02/14/2024 by Janae Mcduffie and his sutures were removed (4). The pocket was draining brown/bloody fluid and he was referred for treatment by Janae Mcduffie. He has been using bandage to keep the wound covered and cleaned it with surgical scrub. Primitivo reports not having any problems with wound healing in the past and the right chest wall incision from the more recent pacemaker battery placement is healing well. He does have a history of diabetes that is controlled with diet and he is not able to recall his most recent A1C. 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 Subjective Subjective Primitivo returns today for follow up of chest wall ulcer that is from pocket that pacemaker was removed from. His wound culture from initial visit was positive for infection and he completed antibiotic treatment. He is tolerating these well. He had Snap vac placed last week and has had it changed once this week. He is tolerating this well with significant improvement of the size of his chest wall ulcer. He denies any increased drainage, fever, chills, erythema. Objective Data Objective Data Vital Signs: Vital Signs Temp Pulse Resp BP O2 Del Method 97 F L 107 H 18 153/83 H Room Air 03/09/24 08:47 03/09/24 08:47 03/09/24 08:47 03/09/24 08:47 03/06/24 08:23 Oxygen Delivery Method Room Air Weight: 223 kg Body Mass Index (BMI) 66.6 Physical Exam Const alert, oriented x3 and no apparent distress General Appearance: cooperative and comfortable HEENT normocephalic and head/scalp atraumatic Resp normal respiratory effort Effort and Inspection: able to speak in complete sentences Cardio regular rate and regular rhythm Skin Wounds: wounds noted Wound Narrative: as in clinical panel Psych mental status grossly normal, thought process normal, cooperative and affect normal Debridement Note Debridement Note Wound debrided: left chest wall ulcer Laterality: Left Type of Debridement: Excisional debridement Anesthesia Used: 4% Lidocaine Solution and 5% Lidocaine Gel Depth: Down to and including healthy tissue and in the subcutaneous layer Percentage of wound debrided: 100 Instrument Used: 5mm curette Tissue Removed: Yellow slough, devitalized tissue Severity: Fat Layer Exposed Amount of bleeding with debridement: Mild Bleeding Controlled with: Compression and gauze Patient tolerated procedure: Patient tolerated procedure well Post-Debridement Measurements and Additional Note: Post-Debridement Measurements/Treatment - Nurse 1 - General Ulcer Assessment Start: 02/27/24 08:37 Freq: Status: Active Protocol: [email or web address] Activity Type Activity Date Activity User E-sign Co-sign Detail Recorded Client Recorded Date Recorded By Document 02/27/24 08:37 KW wound center 02/27/24 08:47 KW Document 03/02/24 08:37 KW wound center 03/02/24 08:52 KW Document 03/06/24 08:23 KW [id number] 03/06/24 08:47 KW Document 03/09/24 08:47 RB wound 03/09/24 08:49 RB 02/27/24 03/02/24 03/06/24 08:37 08:37 08:23 - Today's Visit Information Type of service Nurse-only Follow-up Visit Nurse-only Visit (Physician/PSYCHIATRIC TECHNICIAN Visit ) Arrival Mode Ambulatory Ambulatory Ambulatory Transfer Assistance Patient Identification Verified (Name & Yes Yes Yes ) Patient Requires Transmission-Based Precautions Height and Weight Body Mass Index (BMI) 66.6 66.6 66.6 BMI Classification Obese Obese Obese Vital Signs Temperature (97.8 F-99.1 F) 98.8 F 98.0 F Temperature Source Temporal Temporal Pulse Rate (60-100) 101 H 104 H 99 Pulse Location Monitor Monitor Respiratory Rate (12-18) 18 18 18 Respiratory rate source Observation Observation Observation Oxygen Delivery Method Room Air Room Air Room Air Blood Pressure (90/60-120/80) 134/74 H 135/64 H 146/79 H Blood Pressure Mean (mm Hg) 94 87 101 Source Monitor Monitor Monitor Position Sitting Sitting Sitting Blood Pressure Location Left Arm Left Arm Right Arm History Since Last Visit- (Skip if this is Patient's initial visit) Have you changed medications since your No No No last visit? Any new allergies or adverse reactions No No No Had a fall/change in ADL's that may No No No increase risk of falls Signs or symptoms of abuse and/or No No No neglect since last visit Have you been in the hospital since your No No No last visit? Has dressing in place as prescribed Yes Yes Yes Has compression in place as prescribed N/A N/A N/A Has offloadiing in place as prescribed N/A N/A N/A Experienced any changes in pain level or No No No management Left Footwear Regular Shoe Regular Shoe Regular Shoe Right Footwear Regular Shoe Regular Shoe Regular Shoe Pain Scale: 0-10 Numeric Is Patient Pain Free? Yes Yes Yes 03/09/24 08:47 WC - Today's Visit Information Type of service Follow-up Visit (Physician/PSYCHIATRIC TECHNICIAN ) Arrival Mode Ambulatory Transfer Assistance None Patient Identification Verified (Name & Yes ) Patient Requires Transmission-Based No Precautions Height and Weight Body Mass Index (BMI) 66.6 BMI Classification Obese Vital Signs Temperature (97.8 F-99.1 F) 97 F L Temperature Source Temporal Pulse Rate (60-100) 107 H Pulse Location Monitor Respiratory Rate (12-18) 18 Respiratory rate source Observation Oxygen Delivery Method Blood Pressure (90/60-120/80) 153/83 H Blood Pressure Mean (mm Hg) 106 Source Monitor Position Semi-Fowlers Blood Pressure Location Left Arm History Since Last Visit- (Skip if this is Patient's initial visit) Have you changed medications since your No last visit? Any new allergies or adverse reactions No Had a fall/change in ADL's that may No increase risk of falls Signs or symptoms of abuse and/or No neglect since last visit Have you been in the hospital since your No last visit? Has dressing in place as prescribed Yes Has compression in place as prescribed No Has offloadiing in place as prescribed No Experienced any changes in pain level or No management Left Footwear Right Footwear Pain Scale: 0-10 Numeric Is Patient Pain Free? Yes WC - Nurse 1 - General Ulcer Measurement Start: 02/27/24 08:37 Freq: Status: Active Protocol: Activity Type Activity Date Activity User E-sign Co-sign Detail Recorded Client Recorded Date Recorded By Document 02/27/24 08:47 KW wound center 02/27/24 08:48 KW Document 03/02/24 08:37 KW wound center 03/02/24 08:52 KW Document 03/06/24 08:23 KW [id number] 03/06/24 08:47 KW Document 03/09/24 08:47 RB wound 03/09/24 08:49 RB 02/27/24 03/02/24 03/06/24 08:47 08:37 08:23 Wound Center Nurse 1 #1 POST OP CHEST INCISION -Combined with other wound -Current Size (cm) - Length 1.5 2.2 -Current Size (cm) - Width 1.4 1.2 -Current Size (cm) - Depth 0.7 0.4 -Total Square Cm 2.10 2.64 -Tunneling Yes -Tunneling Position (O'clock) 11 -Tunneling Distance (cm) 0.7 -Undermining/Tunneling Yes -Undermining/Tunneling Starts (O'clock 4 ) -Undermining/Tunneling Ends (O'clock) 8 -Maximum Distance (cm) 2.2 -Circular Undermining -Exudate Amt None Present Medium Medium -Exudate Type Serous Serosanguineous Serosanguineous -Wound Margin Thickened & Distinct, Distinct, Rolled Under Outline Outline Attached Attached -Granulation Amt Small (1-33%) Large (67-100%) Large (67-100%) -Granulation Quality [place] Red Red -Slough/Fibrin Yes -Necrosis Amt Medium (34-66%) Small (1-33%) Small (1-33%) -Necrotic Tissue Type Adherent Slough Adherent Slough Adherent Slough -Structure Exposed -Texture ([place]-wound Skin Appearance) Assessed Assessed Assessed -Moisture ([place]-wound Skin Appearance) Assessed Assessed Assessed -Color ([place]-wound Skin Appearance) Assessed Assessed, Assessed, Erythema Erythema -Temperature ([place]-wound Skin No Abnormality No Abnormality No Abnormality Appearance) (Pt Warm) (Pt Warm) (Pt Warm) -Tenderness on Palpation ([place]-wound No No No Skin Appearance) -Ulcer Cleansing Soap and Water Soap and Water Soap and Water -Foul Odor after Cleansing No -Anesthetic Used 5% Lidocaine Gel 03/09/24 08:47 Wound Center Nurse 1 #1 POST OP CHEST INCISION -Combined with other wound No -Current Size (cm) - Length 1.5 -Current Size (cm) - Width 1 -Current Size (cm) - Depth 0.4 -Total Square Cm 1.5 -Tunneling No -Tunneling Position (O'clock) -Tunneling Distance (cm) -Undermining/Tunneling Yes -Undermining/Tunneling Starts (O'clock 7 ) -Undermining/Tunneling Ends (O'clock) 10 -Maximum Distance (cm) 0.5 -Circular Undermining No -Exudate Amt Large -Exudate Type Serosanguineous -Wound Margin Thickened & Rolled Under -Granulation Amt Medium (34-66%) -Granulation Quality [place] -Slough/Fibrin Yes -Necrosis Amt Medium (34-66%) -Necrotic Tissue Type Adherent Slough -Structure Exposed N/A -Texture ([place]-wound Skin Appearance) Assessed, Scarring -Moisture ([place]-wound Skin Appearance) Assessed -Color ([place]-wound Skin Appearance) Assessed -Temperature ([place]-wound Skin No Abnormality Appearance) (Pt Warm) -Tenderness on Palpation ([place]-wound No Skin Appearance) -Ulcer Cleansing Wound Cleanser -Foul Odor after Cleansing No -Anesthetic Used 4% Lidocaine Solution WC - Nurse 2 - General Ulcer CM Notes Start: 02/27/24 08:37 Freq: Status: Active Protocol: Activity Type Activity Date Activity User E-sign Co-sign Detail Recorded Client Recorded Date Recorded By Document 03/02/24 08:55 GM 03/02/24 09:06 Document 03/09/24 08:59 GM 03/09/24 09:05 03/02/24 03/09/24 08:55 08:59 Wound Center Nurse 2 #1 POST OP CHEST INCISION -Time 08:56 08:59 -Correct Patient Yes Yes -Correct Side, Site, Position Yes Yes -Correct Procedure Yes Yes -Procedure Performed Yes Yes -Type of Procedure Debridement Debridement -Clinical Debridement Subcutaneous Subcutaneous -Tissue Removed Subcutaneous Subcutaneous -Post Debridement (cm) - Length 2.0 1.7 -Post Debridement (cm) - Width 1.1 0.8 -Post Debridement (cm) - Depth 0.4 0.4 -Total Square (Post) (cm) 2.20 1.36 -Area of Debridement (cm) - Length 2.0 1.7 -Area of Debridement (cm) - Width 1.1 0.8 -Total Square (Area) (cm) 2.20 1.36 -Tunneling Yes Yes -Tunneling Position (O'clock) 8 8 -Tunneling Distance (cm) 1.3 0.9 -Undermining/Tunneling No No -Circular Undermining No No -Wound/Ulcer Outcome Not Healed Not Healed -Ulcer Cleansing Rinsed/ Rinsed/ Irrigated with Irrigated with Saline Saline -Foul Odor after Cleansing No No -Bioengineered Tissue No No -Bleeding Controlled with Pressure Pressure -Treatment Response Procedure Procedure Tolerated Well Tolerated Well -Debridement - Subq, 1st 20sq cm Yes Yes Pain Scale: 0-10 Numeric Is Patient Pain Free? Yes Yes - Nurse 3 - General Ulcer D/C NN Start: 02/27/24 08:37 Freq: Status: Active Protocol: Activity Type Activity Date Activity User E-sign Co-sign Detail Recorded Client Recorded Date Recorded By Document 02/27/24 08:37 KW wound center 02/27/24 08:47 KW Document 03/02/24 09:29 RB wound center 03/02/24 09:30 RB Document 03/06/24 08:23 KW [id number] 03/06/24 08:47 KW Edit Result 03/06/24 08:23 KW (1) [id number] 03/06/24 08:48 KW Document 03/09/24 09:11 GM 03/09/24 09:12 GM (1) #1 POST OP CHEST INCISION - NPWT Application Charge NPWT > 50 sq cm ($ => NPWT </= 50 sq cm ) => (disp) ($) 02/27/24 03/02/24 03/06/24 08:37 09:29 08:23 Vital Signs Temperature (97.8 F-99.1 F) 98.8 F 98.0 F Temperature Source Temporal Temporal Pulse Rate (60-100) 101 H 99 Pulse Location Monitor Monitor Respiratory Rate (12-18) 18 18 Respiratory rate source Observation Observation Oxygen Delivery Method Room Air Room Air Blood Pressure (90/60-120/80) 134/74 H 146/79 H Blood Pressure Mean (mm Hg) 94 101 Source Monitor Monitor Position Sitting Sitting Blood Pressure Location Left Arm Right Arm Pain Scale: 0-10 Numeric Is Patient Pain Free? Yes Yes Yes Wound Care Center Nurse 3 #1 POST OP CHEST INCISION -Ulcer Cleansing Soap and Water Rinsed/ Soap and Water Irrigated with Saline -Foul Odor after Cleansing No -Negative Pressure Wound Therapy Continue Continue Continue -Setting (mmHg) 125 125 125 -Negative Pressure is Continuous Continuous Continuous -NPWT Application Charge NPWT > 50 sq cm NPWT & NPWT </= 50 sq (disp) ($) Debridement (nc cm (disp) ($) ) -Wound Comment(s) snap vac applied Treatment Response Procedure Tolerated Well WC - Visit Discharge Discharge Condition Stable Stable Stable Ambulatory Status Ambulatory Ambulatory Ambulatory Transportation Private Auto Private Auto Private Auto Medication Reconcilliation completed & No No No provided to patient/care provider Clinical Summary of Care Provided Yes Yes Yes 03/09/24 09:11 Vital Signs Temperature (97.8 F-99.1 F) Temperature Source Pulse Rate (60-100) Pulse Location Respiratory Rate (12-18) Respiratory rate source Oxygen Delivery Method Blood Pressure (90/60-120/80) Blood Pressure Mean (mm Hg) Source Position Blood Pressure Location Pain Scale: 0-10 Numeric Is Patient Pain Free? Yes Wound Care Center Nurse 3 #1 POST OP CHEST INCISION -Ulcer Cleansing Not Cleansed -Foul Odor after Cleansing No -Negative Pressure Wound Therapy Continue -Setting (mmHg) 125 -Negative Pressure is Continuous -NPWT Application Charge NPWT </= 50 sq cm (disp) ($) -Wound Comment(s) Treatment Response WC - Visit Discharge Discharge Condition Stable Ambulatory Status Ambulatory Transportation Private Auto Medication Reconcilliation completed & provided to patient/care provider Clinical Summary of Care Provided Yes Assessment/Plan Assessment/Plan (1) Presence of cardiac pacemaker: CODE(S): Z95.0 - Presence of cardiac pacemaker (2) Tracheostomy dependent: CODE(S): Z93.0 - Tracheostomy status (3) Essential (primary) hypertension: CODE(S): I10 - Essential (primary) hypertension (4) Nonhealing surgical wound: CODE(S): T81.89XA - Other complications of procedures, not elsewhere classified, initial encounter QUALIFIERS: Encounter type: subsequent encounter Qualified Code(s): T81.89XD - Other complications of procedures, not elsewhere classified, subsequent encounter (5) Ulcer of chest wall with fat layer exposed: CODE(S): L98.492 - Non-pressure chronic ulcer of skin of other sites with fat layer exposed (6) Diabetes: CODE(S): E11.9 - Type 2 diabetes mellitus without complications QUALIFIERS: Diabetes mellitus type: type 2 Diabetes mellitus skilled nursing insulin use: without skilled nursing use Diabetes mellitus complication status: with skin complications Diabetes mellitus complication detail: with other skin ulcer Qualified Code(s): E11.622 - Type 2 diabetes mellitus with other skin ulcer PLAN: Plan Debridement performed today in clinic as annotated above. At home wound-care instructions: He is tolerating treatment with Snap-vac and has had significant improvement in the undermining of the cavity of his chest ulcer. Will continue Snap-vac therapy with plan to change it on Tuesday next week. Keep dressing clean and dry. Off-loading: The patient was instructed to avoid pressure and friction on the affected areas. Reposition every 2 hours at minimum. Avoid prolonged standing and/or dangling of legs. When seated, feet should be elevated at chest level. Frequent ambulation is encouraged. Diet: Patient encouraged to increase protein intake while taking caution to avoid high carbohydrate and/or sugar intake. Labs/cultures/imaging: Wound culture was positive for infection and he has been taking antibiotics and tolerating them well. Follow-up: Return in 1 week for wound care follow up and on Tuesday for nurse visit to apply Snap wound vac. Return sooner or report to the emergency room should symptoms worsen, or new symptoms arise. Note: [employer] speech recognition registered physical therapist software was used to create portions of this document. Sound-alike and misspelled words, as well as other registered physical therapist errors may be contained in the documentation.
[2024-03-14 08:01] VITALS: BP 142/75; PULSE 96; RESP 16; TEMP 36.3; BMI 66.6
[2024-03-16 08:33] VITALS: BP 127/75; PULSE 98; TEMP 36.4; BMI 66.6
--- NOTE | 2024-03-16 09:58 | PN.PCM_ITS ---
History of Present Illness Date of Service: 03/16/24 Chief Complaint: left chest non-healing surgical wound History of Wound: Primitivo is a 68 yo gentleman that presents to the wound healing center today for evaluation and treatment of a left chest wall surgical wound that has opened after suture removal and is not healing. This is at the site of a pacemaker placement on 12/16/[address] [facility] by Dr. Glover. He noted drainage and possible infection and went to ER at [facility] on 01/25/2024. He was started on IV antibiotics with Vancomycin and the battery and pacemaker leads were removed and debridement of the pocket was done on 01/27/2024 and a temporary pacemaker was placed in his right chest. The new battery was placed in his right chest on 02/01/2024. He was switched to Ancef while in the hospital for MSSA once cultures were back from removal of the original pacemaker of his left chest wall and discharged on Cefadroxil orally to be completed on 02/10/24. He was seen on 02/14/2024 by Janae Mcduffie and his sutures were removed (4). The pocket was draining brown/bloody fluid and he was referred for treatment by Janae Mcduffie. He has been using bandage to keep the wound covered and cleaned it with surgical scrub. Primitivo reports not having any problems with wound healing in the past and the right chest wall incision from the more recent pacemaker battery placement is healing well. He does have a history of diabetes that is controlled with diet and he is not able to recall his most recent A1C. 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 Subjective Subjective Primitivo returns today for follow up of chest wall ulcer that is from pocket that pacemaker was removed from. His wound culture from initial visit was positive for infection and he completed antibiotic treatment. He completed this treat ment. He had Snap vac placed last week and has had it changed once this week. He is tolerating this well with significant improvement of the size of his chest wall ulcer. He denies any increased drainage, fever, chills, erythema. Objective Data Objective Data Vital Signs: Vital Signs Temp Pulse Resp BP O2 Del Method 97.5 F L 98 16 127/75 H Room Air 03/16/24 08:33 03/16/24 08:33 03/14/24 08:01 03/16/24 08:33 03/16/24 08:33 Oxygen Delivery Method Room Air Weight: 223 kg Body Mass Index (BMI) 66.6 Physical Exam Const alert, oriented x3 and no apparent distress General Appearance: cooperative and comfortable HEENT normocephalic and head/scalp atraumatic Resp normal respiratory effort Effort and Inspection: able to speak in complete sentences Cardio regular rate and regular rhythm Skin Wounds: wounds noted Wound Narrative: as in clinical panel Psych mental status grossly normal, thought process normal, cooperative and affect normal Debridement Note Debridement Note Wound debrided: left chest wall ulcer Laterality: Left Type of Debridement: Excisional debridement Anesthesia Used: 4% Lidocaine Solution and 5% Lidocaine Gel Depth: Down to and including healthy tissue and in the subcutaneous layer Percentage of wound debrided: 100 Instrument Used: 3mm curette Tissue Removed: Yellow slough, devitalized tissue Severity: Fat Layer Exposed Amount of bleeding with debridement: Mild Bleeding Controlled with: Compression and gauze Patient tolerated procedure: Patient tolerated procedure well Post-Debridement Measurements and Additional Note: Post-Debridement Measurements/Treatment - Nurse 1 - General Ulcer Assessment Start: 02/27/24 08:37 Freq: Status: Active Protocol: [email or web address] Activity Type Activity Date Activity User E-sign Co-sign Detail Recorded Client Recorded Date Recorded By Document 02/27/24 08:37 KW wound center 02/27/24 08:47 KW Document 03/02/24 08:37 KW wound center 03/02/24 08:52 KW Document 03/06/24 08:23 KW [id number] 03/06/24 08:47 KW Document 03/09/24 08:47 RB wound 03/09/24 08:49 RB Document 03/14/24 08:01 KW j 03/14/24 08:06 KW Document 03/16/24 08:33 DS 1 03/16/24 08:50 DS 02/27/24 03/02/24 03/06/24 08:37 08:37 08:23 - Today's Visit Information Type of service Nurse-only Follow-up Visit Nurse-only Visit (Physician/MAT GAUGER Visit ) Arrival Mode Ambulatory Ambulatory Ambulatory Transfer Assistance Patient Identification Verified (Name & Yes Yes Yes ) Patient Requires Transmission-Based Precautions Safety Precautions Height and Weight Body Mass Index (BMI) 66.6 66.6 66.6 BMI Classification Obese Obese Obese Vital Signs Temperature (97.8 F-99.1 F) 98.8 F 98.0 F Temperature Source Temporal Temporal Pulse Rate (60-100) 101 H 104 H 99 Pulse Location Monitor Monitor Respiratory Rate (12-18) 18 18 18 Respiratory rate source Observation Observation Observation Oxygen Delivery Method Room Air Room Air Room Air Blood Pressure (90/60-120/80) 134/74 H 135/64 H 146/79 H Blood Pressure Mean (mm Hg) 94 87 101 Source Monitor Monitor Monitor Position Sitting Sitting Sitting Blood Pressure Location Left Arm Left Arm Right Arm History Since Last Visit- (Skip if this is Patient's initial visit) Have you changed medications since your No No No last visit? Any new allergies or adverse reactions No No No Had a fall/change in ADL's that may No No No increase risk of falls Signs or symptoms of abuse and/or No No No neglect since last visit Have you been in the hospital since your No No No last visit? Has dressing in place as prescribed Yes Yes Yes Has compression in place as prescribed N/A N/A N/A Has offloadiing in place as prescribed N/A N/A N/A Experienced any changes in pain level or No No No management Left Footwear Regular Shoe Regular Shoe Regular Shoe Right Footwear Regular Shoe Regular Shoe Regular Shoe Pain Scale: 0-10 Numeric Is Patient Pain Free? Yes Yes Yes 03/09/24 03/14/24 03/16/24 08:47 08:01 08:33 WC - Today's Visit Information Type of service Follow-up Visit Nurse-only Follow-up Visit (Physician/MAT GAUGER Visit (Physician/MAT GAUGER ) ) Arrival Mode Ambulatory Ambulatory Ambulatory Transfer Assistance None Patient Identification Verified (Name & Yes Yes ) Patient Requires Transmission-Based No Precautions Safety Precautions NA Height and Weight Body Mass Index (BMI) 66.6 66.6 66.6 BMI Classification Obese Obese Obese Vital Signs Temperature (97.8 F-99.1 F) 97 F L 97.4 F L 97.5 F L Temperature Source Temporal Temporal Temporal Pulse Rate (60-100) 107 H 96 98 Pulse Location Monitor Monitor Monitor Respiratory Rate (12-18) 18 16 Respiratory rate source Observation Observation Oxygen Delivery Method Room Air Room Air Blood Pressure (90/60-120/80) 153/83 H 142/75 H 127/75 H Blood Pressure Mean (mm Hg) 106 97 92 Source Monitor Monitor Position Semi-Fowlers Sitting Blood Pressure Location Left Arm Right Arm History Since Last Visit- (Skip if this is Patient's initial visit) Have you changed medications since your No No No last visit? Any new allergies or adverse reactions No No No Had a fall/change in ADL's that may No No No increase risk of falls Signs or symptoms of abuse and/or No No No neglect since last visit Have you been in the hospital since your No No No last visit? Has dressing in place as prescribed Yes Yes Yes Has compression in place as prescribed No N/A N/A Has offloadiing in place as prescribed No N/A N/A Experienced any changes in pain level or No No No management Left Footwear Regular Shoe Regular Shoe Right Footwear Regular Shoe Regular Shoe Pain Scale: 0-10 Numeric Is Patient Pain Free? Yes Yes Yes WC - Nurse 1 - General Ulcer Measurement Start: 02/27/24 08:37 Freq: Status: Active Protocol: Activity Type Activity Date Activity User E-sign Co-sign Detail Recorded Client Recorded Date Recorded By Document 02/27/24 08:47 KW wound center 02/27/24 08:48 KW Document 03/02/24 08:37 KW wound center 03/02/24 08:52 KW Document 03/06/24 08:23 KW [id number] 03/06/24 08:47 KW Document 03/09/24 08:47 RB wound 03/09/24 08:49 RB Document 03/16/24 08:33 DS 1 03/16/24 08:50 DS 02/27/24 03/02/24 03/06/24 08:47 08:37 08:23 Wound Center Nurse 1 #1 POST OP CHEST INCISION -Combined with other wound -Current Size (cm) - Length 1.5 2.2 -Current Size (cm) - Width 1.4 1.2 -Current Size (cm) - Depth 0.7 0.4 -Total Square Cm 2.10 2.64 -Date of Last Picture (Recall this field) -Photo Taken -Tunneling Yes -Tunneling Position (O'clock) 11 -Tunneling Distance (cm) 0.7 -Undermining/Tunneling Yes -Undermining/Tunneling Starts (O'clock 4 ) -Undermining/Tunneling Ends (O'clock) 8 -Maximum Distance (cm) 2.2 -Circular Undermining -Exudate Amt None Present Medium Medium -Exudate Type Serous Serosanguineous Serosanguineous -Wound Margin Thickened & Distinct, Distinct, Rolled Under Outline Outline Attached Attached -Granulation Amt Small (1-33%) Large (67-100%) Large (67-100%) -Granulation Quality [place] Red Red -Slough/Fibrin Yes -Necrosis Amt Medium (34-66%) Small (1-33%) Small (1-33%) -Necrotic Tissue Type Adherent Slough Adherent Slough Adherent Slough -Structure Exposed -Texture ([place]-wound Skin Appearance) Assessed Assessed Assessed -Moisture ([place]-wound Skin Appearance) Assessed Assessed Assessed -Color ([place]-wound Skin Appearance) Assessed Assessed, Assessed, Erythema Erythema -Temperature ([place]-wound Skin No Abnormality No Abnormality No Abnormality Appearance) (Pt Warm) (Pt Warm) (Pt Warm) -Tenderness on Palpation ([place]-wound No No No Skin Appearance) -Ulcer Cleansing Soap and Water Soap and Water Soap and Water -Foul Odor after Cleansing No -Anesthetic Used 5% Lidocaine Gel 03/09/24 03/16/24 08:47 08:33 Wound Center Nurse 1 #1 POST OP CHEST INCISION -Combined with other wound No -Current Size (cm) - Length 1.5 1.4 -Current Size (cm) - Width 1 0.6 -Current Size (cm) - Depth 0.4 0.4 -Total Square Cm 1.5 0.84 -Date of Last Picture (Recall this 03/16/24 field) -Photo Taken Yes -Tunneling No -Tunneling Position (O'clock) -Tunneling Distance (cm) -Undermining/Tunneling Yes -Undermining/Tunneling Starts (O'clock 7 6 ) -Undermining/Tunneling Ends (O'clock) 10 11 -Maximum Distance (cm) 0.5 0.5 -Circular Undermining No -Exudate Amt Large -Exudate Type Serosanguineous Serosanguineous -Wound Margin Thickened & Distinct, Rolled Under Outline Attached -Granulation Amt Medium (34-66%) -Granulation Quality [place] -Slough/Fibrin Yes -Necrosis Amt Medium (34-66%) -Necrotic Tissue Type Adherent Slough -Structure Exposed N/A -Texture ([place]-wound Skin Appearance) Assessed, Assessed Scarring -Moisture ([place]-wound Skin Appearance) Assessed Assessed -Color ([place]-wound Skin Appearance) Assessed Assessed -Temperature ([place]-wound Skin No Abnormality No Abnormality Appearance) (Pt Warm) (Pt Warm) -Tenderness on Palpation ([place]-wound No No Skin Appearance) -Ulcer Cleansing Wound Cleanser Soap and Water -Foul Odor after Cleansing No -Anesthetic Used 4% Lidocaine 5% Lidocaine Solution Gel - Nurse 2 - General Ulcer CM Notes Start: 02/27/24 08:37 Freq: Status: Active Protocol: Activity Type Activity Date Activity User E-sign Co-sign Detail Recorded Client Recorded Date Recorded By Document 03/02/24 08:55 [facility] 03/02/24 09:06 Document 03/09/24 08:59 [facility] 03/09/24 09:05 Document 03/16/24 08:58 [facility] 03/16/24 09:04 03/02/24 03/09/24 03/16/24 08:55 08:59 08:58 Wound Center Nurse 2 #1 POST OP CHEST INCISION -Time 08:56 08:59 08:58 -Correct Patient Yes Yes Yes -Correct Side, Site, Position Yes Yes Yes -Correct Procedure Yes Yes Yes -Procedure Performed Yes Yes Yes -Type of Procedure Debridement Debridement Debridement -Clinical Debridement Subcutaneous Subcutaneous Subcutaneous -Tissue Removed Subcutaneous Subcutaneous Subcutaneous -Post Debridement (cm) - Length 2.0 1.7 1.5 -Post Debridement (cm) - Width 1.1 0.8 0.8 -Post Debridement (cm) - Depth 0.4 0.4 0.3 -Total Square (Post) (cm) 2.20 1.36 1.20 -Area of Debridement (cm) - Length 2.0 1.7 0.5 -Area of Debridement (cm) - Width 1.1 0.8 0.8 -Total Square (Area) (cm) 2.20 1.36 0.40 -Tunneling Yes Yes No -Tunneling Position (O'clock) 8 8 -Tunneling Distance (cm) 1.3 0.9 -Undermining/Tunneling No No No -Circular Undermining No No No -Wound/Ulcer Outcome Not Healed Not Healed Not Healed -Ulcer Cleansing Rinsed/ Rinsed/ Rinsed/ Irrigated with Irrigated with Irrigated with Saline Saline Saline -Foul Odor after Cleansing No No No -Bioengineered Tissue No No No -Bleeding Controlled with Pressure Pressure Pressure -Treatment Response Procedure Procedure Procedure Tolerated Well Tolerated Well Tolerated Well -Debridement - Subq, 1st 20sq cm Yes Yes Yes Pain Scale: 0-10 Numeric Is Patient Pain Free? Yes Yes Yes WC - Nurse 3 - General Ulcer D/C NN Start: 02/27/24 08:37 Freq: Status: Active Protocol: Activity Type Activity Date Activity User E-sign Co-sign Detail Recorded Client Recorded Date Recorded By Document 02/27/24 08:37 KW wound center 02/27/24 08:47 KW Document 03/02/24 09:29 RB wound center 03/02/24 09:30 RB Document 03/06/24 08:23 KW [id number] 03/06/24 08:47 KW Edit Result 03/06/24 08:23 KW (1) [id number] 03/06/24 08:48 KW Document 03/09/24 09:11 GM wc 03/09/24 09:12 GM Document 03/14/24 08:01 KW j 03/14/24 08:06 KW (1) #1 POST OP CHEST INCISION - NPWT Application Charge NPWT > 50 sq cm ($ => NPWT </= 50 sq cm ) => (disp) ($) 02/27/24 03/02/24 03/06/24 08:37 09:29 08:23 Vital Signs Temperature (97.8 F-99.1 F) 98.8 F 98.0 F Temperature Source Temporal Temporal Pulse Rate (60-100) 101 H 99 Pulse Location Monitor Monitor Respiratory Rate (12-18) 18 18 Respiratory rate source Observation Observation Oxygen Delivery Method Room Air Room Air Blood Pressure (90/60-120/80) 134/74 H 146/79 H Blood Pressure Mean (mm Hg) 94 101 Source Monitor Monitor Position Sitting Sitting Blood Pressure Location Left Arm Right Arm Pain Scale: 0-10 Numeric Is Patient Pain Free? Yes Yes Yes Wound Care Center Nurse 3 #1 POST OP CHEST INCISION -Ulcer Cleansing Soap and Water Rinsed/ Soap and Water Irrigated with Saline -Foul Odor after Cleansing No -Negative Pressure Wound Therapy Continue Continue Continue -Setting (mmHg) 125 125 125 -Negative Pressure is Continuous Continuous Continuous -NPWT Application Charge NPWT > 50 sq cm NPWT & NPWT </= 50 sq (disp) ($) Debridement (nc cm (disp) ($) ) -Wound Comment(s) snap vac applied Treatment Response Procedure Tolerated Well WC - Visit Discharge Discharge Condition Stable Stable Stable Ambulatory Status Ambulatory Ambulatory Ambulatory Transportation Private Auto Private Auto Private Auto Medication Reconcilliation completed & No No No provided to patient/care provider Clinical Summary of Care Provided Yes Yes Yes 03/09/24 03/14/24 09:11 08:01 Vital Signs Temperature (97.8 F-99.1 F) 97.4 F L Temperature Source Temporal Pulse Rate (60-100) 96 Pulse Location Monitor Respiratory Rate (12-18) 16 Respiratory rate source Observation Oxygen Delivery Method Room Air Blood Pressure (90/60-120/80) 142/75 H Blood Pressure Mean (mm Hg) 97 Source Monitor Position Sitting Blood Pressure Location Right Arm Pain Scale: 0-10 Numeric Is Patient Pain Free? Yes Yes Wound Care Center Nurse 3 #1 POST OP CHEST INCISION -Ulcer Cleansing Not Cleansed Soap and Water -Foul Odor after Cleansing No No -Negative Pressure Wound Therapy Continue Continue -Setting (mmHg) 125 125 -Negative Pressure is Continuous Continuous -NPWT Application Charge NPWT </= 50 sq NPWT > 50 sq cm cm (disp) ($) (disp) ($) -Wound Comment(s) Treatment Response WC - Visit Discharge Discharge Condition Stable Stable Ambulatory Status Ambulatory Ambulatory Transportation Private [employer] Auto Medication Reconcilliation completed & No provided to patient/care provider Clinical Summary of Care Provided Yes Yes Assessment/Plan Assessment/Plan (1) Presence of cardiac pacemaker: CODE(S): Z95.0 - Presence of cardiac pacemaker (2) Tracheostomy dependent: CODE(S): Z93.0 - Tracheostomy status (3) Essential (primary) hypertension: CODE(S): I10 - Essential (primary) hypertension (4) Nonhealing surgical wound: CODE(S): T81.89XA - Other complications of procedures, not elsewhere classified, initial encounter QUALIFIERS: Encounter type: subsequent encounter Qualified Code(s): T81.89XD - Other complications of procedures, not elsewhere classified, subsequent encounter (5) Ulcer of chest wall with fat layer exposed: CODE(S): L98.492 - Non-pressure chronic ulcer of skin of other sites with fat layer exposed (6) Diabetes: CODE(S): E11.9 - Type 2 diabetes mellitus without complications QUALIFIERS: Diabetes mellitus type: type 2 Diabetes mellitus skilled nursing insulin use: without terminal operator use Diabetes mellitus complication status: with skin complications Diabetes mellitus complication detail: with other skin ulcer Qualified Code(s): E11.622 - Type 2 diabetes mellitus with other skin ulcer PLAN: Plan Debridement performed today in clinic as annotated above. At home wound-care instructions: He is tolerating treatment with Snap-vac and has had significant improvement in the undermining of the cavity of his chest ulcer. Will continue Snap-vac therapy with plan to change it on Tuesday or Tuesday next week. Keep dressing clean and dry. Off-loading: The patient was instructed to avoid pressure and friction on the affected areas. Reposition every 2 hours at minimum. Avoid prolonged standing and/or dangling of legs. When seated, feet should be elevated at chest level. Frequent ambulation is encouraged. Diet: Patient encouraged to increase protein intake while taking caution to avoid high carbohydrate and/or sugar intake. Labs/cultures/imaging: Wound culture was positive for infection and he has been taking antibiotics and tolerating them well. Follow-up: Return in 1 week for wound care follow up and on Tuesday for nurse visit to apply Snap wound vac. Return sooner or report to the emergency room should symptoms worsen, or new symptoms arise. Note: [employer] speech recognition care technician software was used to create portions of this document. Sound-alike and misspelled words, as well as other care technician errors may be contained in the documentation.
--- NOTE | 2024-03-19 10:34 | WC ---
PHOTO 03/14/2024 LEFT CHEST
--- NOTE | 2024-03-19 10:35 | WC ---
PHOTO 03/14/2024 LEFT CHEST
[2024-03-20 08:14] VITALS: BP 142/83; PULSE 101; RESP 18; TEMP 36; BMI 66.6
[2024-03-23 08:36] VITALS: BP 141/72; PULSE 99; RESP 18; TEMP 37.2; BMI 66.6
--- NOTE | 2024-03-23 12:42 | PCM.WC.PN ---
History of Present Illness Date of Service: 03/23/24 Chief Complaint: left chest non-healing surgical wound History of Wound: Primitivo is a 68 yo gentleman that presents to the wound healing center today for evaluation and treatment of a left chest wall surgical wound that has opened after suture removal and is not healing. This is at the site of a pacemaker placement on 12/16/2023 at [facility] by Dr. Glover. He noted drainage and possible infection and went to ER at [facility] on 01/25/2024. He was started on IV antibiotics with Vancomycin and the battery and pacemaker leads were removed and debridement of the pocket was done on 01/27/2024 and a temporary pacemaker was placed in his right chest. The new battery was placed in his right chest on 02/01/2024. He was switched to Ancef while in the hospital for MSSA once cultures were back from removal of the original pacemaker of his left chest wall and discharged on Cefadroxil orally to be completed on 02/10/24. He was seen on 02/14/2024 by Janae Mcduffie and his sutures were removed (4). The pocket was draining brown/bloody fluid and he was referred for treatment by Janae Mcduffie. He has been using bandage to keep the wound covered and cleaned it with surgical scrub. Primitivo reports not having any problems with wound healing in the past and the right chest wall incision from the more recent pacemaker battery placement is healing well. He does have a history of diabetes that is controlled with diet and he is not able to recall his most recent A1C. 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 Subjective Subjective Primitivo returns today for follow up of chest wall ulcer that is from pocket that pacemaker was removed from. His wound culture from initial visit was positive for infection and he completed antibiotic treatment. He continues to show improvement in the size of his ulcer. He had Snap vac placed last week and has had it changed once this week. He is tolerating this well with significant improvement of the size of his chest wall ulcer. He denies any increased drainage, fever, chills, erythema. Objective Data Objective Data Vital Signs: Vital Signs Temp Pulse Resp BP O2 Del Method 98.9 F 99 18 141/72 H Room Air 03/23/24 08:36 03/23/24 08:36 03/23/24 08:36 03/23/24 08:36 03/23/24 08:36 Oxygen Delivery Method Room Air Weight: 223 kg Body Mass Index (BMI) 66.6 Physical Exam Const alert, oriented x3 and no apparent distress General Appearance: cooperative and comfortable HEENT normocephalic and head/scalp atraumatic Resp normal respiratory effort Effort and Inspection: able to speak in complete sentences Cardio regular rate and regular rhythm Skin Wounds: wounds noted Wound Narrative: as in clinical panel Psych mental status grossly normal, thought process normal, cooperative and affect normal Debridement Note Debridement Note Wound debrided: left chest wall Laterality: Left Type of Debridement: Excisional debridement Anesthesia Used: 4% Lidocaine Solution and 5% Lidocaine Gel Depth: Down to and including healthy tissue and in the subcutaneous layer Percentage of wound debrided: 100 Instrument Used: 3mm curette Tissue Removed: Yellow slough, devitalized tissue Severity: Fat Layer Exposed Amount of bleeding with debridement: Mild Bleeding Controlled with: Compression and gauze Patient tolerated procedure: Patient tolerated procedure well Post-Debridement Measurements and Additional Note: Post-Debridement Measurements/Treatment - Nurse 1 - General Ulcer Assessment Start: 02/27/24 08:37 Freq: Status: Active Protocol: SAMI Activity Type Activity Date Activity User E-sign Co-sign Detail Recorded Client Recorded Date Recorded By Document 02/27/24 08:37 KW wound center 02/27/24 08:47 KW Document 03/02/24 08:37 KW wound center 03/02/24 08:52 KW Document 03/06/24 08:23 KW [id number] 03/06/24 08:47 KW Document 03/09/24 08:47 RB wound 03/09/24 08:49 RB Document 03/14/24 08:01 KW j 03/14/24 08:06 KW Document 03/16/24 08:33 DS 1 03/16/24 08:50 DS Document 03/20/24 08:14 KW l 03/20/24 08:30 KW Document 03/23/24 08:36 KW ; 03/23/24 08:40 KW 02/27/24 03/02/24 03/06/24 08:37 08:37 08:23 - Today's Visit Information Type of service Nurse-only Follow-up Visit Nurse-only Visit (Physician/DOLL WIGS HACKLER Visit ) Arrival Mode Ambulatory Ambulatory Ambulatory Transfer Assistance Patient Identification Verified (Name & Yes Yes Yes ) Patient Requires Transmission-Based Precautions Safety Precautions Height and Weight Body Mass Index (BMI) 66.6 66.6 66.6 BMI Classification Obese Obese Obese Vital Signs Temperature (97.8 F-99.1 F) 98.8 F 98.0 F Temperature Source Temporal Temporal Pulse Rate (60-100) 101 H 104 H 99 Pulse Location Monitor Monitor Respiratory Rate (12-18) 18 18 18 Respiratory rate source Observation Observation Observation Oxygen Delivery Method Room Air Room Air Room Air Blood Pressure (90/60-120/80) 134/74 H 135/64 H 146/79 H Blood Pressure Mean (mm Hg) 94 87 101 Source Monitor Monitor Monitor Position Sitting Sitting Sitting Blood Pressure Location Left Arm Left Arm Right Arm History Since Last Visit- (Skip if this is Patient's initial visit) Have you changed medications since your No No No last visit? Any new allergies or adverse reactions No No No Had a fall/change in ADL's that may No No No increase risk of falls Signs or symptoms of abuse and/or No No No neglect since last visit Have you been in the hospital since your No No No last visit? Has dressing in place as prescribed Yes Yes Yes Has compression in place as prescribed N/A N/A N/A Has offloadiing in place as prescribed N/A N/A N/A Experienced any changes in pain level or No No No management Left Footwear Regular Shoe Regular Shoe Regular Shoe Right Footwear Regular Shoe Regular Shoe Regular Shoe Pain Scale: 0-10 Numeric Is Patient Pain Free? Yes Yes Yes 03/09/24 03/14/24 03/16/24 08:47 08:01 08:33 WC - Today's Visit Information Type of service Follow-up Visit Nurse-only Follow-up Visit (Physician/DOLL WIGS HACKLER Visit (Physician/DOLL WIGS HACKLER ) ) Arrival Mode Ambulatory Ambulatory Ambulatory Transfer Assistance None Patient Identification Verified (Name & Yes Yes ) Patient Requires Transmission-Based No Precautions Safety Precautions NA Height and Weight Body Mass Index (BMI) 66.6 66.6 66.6 BMI Classification Obese Obese Obese Vital Signs Temperature (97.8 F-99.1 F) 97 F L 97.4 F L 97.5 F L Temperature Source Temporal Temporal Temporal Pulse Rate (60-100) 107 H 96 98 Pulse Location Monitor Monitor Monitor Respiratory Rate (12-18) 18 16 Respiratory rate source Observation Observation Oxygen Delivery Method Room Air Room Air Blood Pressure (90/60-120/80) 153/83 H 142/75 H 127/75 H Blood Pressure Mean (mm Hg) 106 97 92 Source Monitor Monitor Position Semi-Fowlers Sitting Blood Pressure Location Left Arm Right Arm History Since Last Visit- (Skip if this is Patient's initial visit) Have you changed medications since your No No No last visit? Any new allergies or adverse reactions No No No Had a fall/change in ADL's that may No No No increase risk of falls Signs or symptoms of abuse and/or No No No neglect since last visit Have you been in the hospital since your No No No last visit? Has dressing in place as prescribed Yes Yes Yes Has compression in place as prescribed No N/A N/A Has offloadiing in place as prescribed No N/A N/A Experienced any changes in pain level or No No No management Left Footwear Regular Shoe Regular Shoe Right Footwear Regular Shoe Regular Shoe Pain Scale: 0-10 Numeric Is Patient Pain Free? Yes Yes Yes 03/20/24 03/23/24 08:14 08:36 WC - Today's Visit Information Type of service Nurse-only Follow-up Visit Visit (Physician/DOLL WIG[facility] HACKLER ) Arrival Mode Ambulatory Ambulatory Transfer Assistance Patient Identification Verified (Name & Yes Yes ) Patient Requires Transmission-Based Precautions Safety Precautions Height and Weight Body Mass Index (BMI) 66.6 66.6 BMI Classification Obese Obese Vital Signs Temperature (97.8 F-99.1 F) 96.8 F L 98.9 F Temperature Source Temporal Temporal Pulse Rate (60-100) 101 H 99 Pulse Location Monitor Monitor Respiratory Rate (12-18) 18 18 Respiratory rate source Observation Observation Oxygen Delivery Method Room Air Room Air Blood Pressure (90/60-120/80) 142/83 H 141/72 H Blood Pressure Mean (mm Hg) 102 95 Source Monitor Monitor Position Sitting Sitting Blood Pressure Location Left Forearm Left Arm History Since Last Visit- (Skip if this is Patient's initial visit) Have you changed medications since your No No last visit? Any new allergies or adverse reactions No No Had a fall/change in ADL's that may No No increase risk of falls Signs or symptoms of abuse and/or No No neglect since last visit Have you been in the hospital since your No No last visit? Has dressing in place as prescribed Yes Yes Has compression in place as prescribed N/A Yes Has offloadiing in place as prescribed N/A N/A Experienced any changes in pain level or No No management Left Footwear Regular Shoe Regular Shoe Right Footwear Regular Shoe Regular Shoe Pain Scale: 0-10 Numeric Is Patient Pain Free? Yes Yes WC - Nurse 1 - General Ulcer Measurement Start: 02/27/24 08:37 Freq: Status: Active Protocol: Activity Type Activity Date Activity User E-sign Co-sign Detail Recorded Client Recorded Date Recorded By Document 02/27/24 08:47 KW wound center 02/27/24 08:48 KW Document 03/02/24 08:37 KW wound center 03/02/24 08:52 KW Document 03/06/24 08:23 KW [id number] 03/06/24 08:47 KW Document 03/09/24 08:47 RB wound 03/09/24 08:49 RB Document 03/16/24 08:33 DS 1 03/16/24 08:50 DS Document 03/23/24 08:36 KW ; 03/23/24 08:40 KW 02/27/24 03/02/24 03/06/24 08:47 08:37 08:23 Wound Center Nurse 1 #1 POST OP CHEST INCISION -Combined with other wound -Current Size (cm) - Length 1.5 2.2 -Current Size (cm) - Width 1.4 1.2 -Current Size (cm) - Depth 0.7 0.4 -Total Square Cm 2.10 2.64 -Date of Last Picture (Recall this field) -Photo Taken -Tunneling Yes -Tunneling Position (O'clock) 11 -Tunneling Distance (cm) 0.7 -Undermining/Tunneling Yes -Undermining/Tunneling Starts (O'clock 4 ) -Undermining/Tunneling Ends (O'clock) 8 -Maximum Distance (cm) 2.2 -Circular Undermining -Exudate Amt None Present Medium Medium -Exudate Type Serous Serosanguineous Serosanguineous -Wound Margin Thickened & Distinct, Distinct, Rolled Under Outline Outline Attached Attached -Granulation Amt Small (1-33%) Large (67-100%) Large (67-100%) -Granulation Quality Accident Red Red -Slough/Fibrin Yes -Necrosis Amt Medium (34-66%) Small (1-33%) Small (1-33%) -Necrotic Tissue Type Adherent Slough Adherent Slough Adherent Slough -Structure Exposed -Texture ([place]-wound Skin Appearance) Assessed Assessed Assessed -Moisture ([place]-wound Skin Appearance) Assessed Assessed Assessed -Color ([place]-wound Skin Appearance) Assessed Assessed, Assessed, Erythema Erythema -Temperature ([place]-wound Skin No Abnormality No Abnormality No Abnormality Appearance) (Pt Warm) (Pt Warm) (Pt Warm) -Tenderness on Palpation ([place]-wound No No No Skin Appearance) -Ulcer Cleansing Soap and Water Soap and Water Soap and Water -Foul Odor after Cleansing No -Anesthetic Used 5% Lidocaine Gel 03/09/24 03/16/24 03/23/24 08:47 08:33 08:36 Wound Center Nurse 1 #1 POST OP CHEST INCISION -Combined with other wound No -Current Size (cm) - Length 1.5 1.4 1 -Current Size (cm) - Width 1 0.6 0.8 -Current Size (cm) - Depth 0.4 0.4 0.3 -Total Square Cm 1.5 0.84 0.8 -Date of Last Picture (Recall this 03/16/24 03/23/24 field) -Photo Taken Yes -Tunneling No -Tunneling Position (O'clock) -Tunneling Distance (cm) -Undermining/Tunneling Yes -Undermining/Tunneling Starts (O'clock 7 6 ) -Undermining/Tunneling Ends (O'clock) 10 11 -Maximum Distance (cm) 0.5 0.5 -Circular Undermining No -Exudate Amt Large Small -Exudate Type Serosanguineous Serosanguineous Serosanguineous -Wound Margin Thickened & Distinct, Distinct, Rolled Under Outline Outline Attached Attached -Granulation Amt Medium (34-66%) Large (67-100%) -Granulation Quality Accident Red -Slough/Fibrin Yes -Necrosis Amt Medium (34-66%) -Necrotic Tissue Type Adherent Slough -Structure Exposed N/A -Texture ([place]-wound Skin Appearance) Assessed, Assessed Assessed Scarring -Moisture ([place]-wound Skin Appearance) Assessed Assessed Assessed -Color ([place]-wound Skin Appearance) Assessed Assessed Assessed -Temperature ([place]-wound Skin No Abnormality No Abnormality No Abnormality Appearance) (Pt Warm) (Pt Warm) (Pt Warm) -Tenderness on Palpation ([place]-wound No No No Skin Appearance) -Ulcer Cleansing Wound Cleanser Soap and Water Soap and Water -Foul Odor after Cleansing No No -Anesthetic Used 4% Lidocaine 5% Lidocaine 5% Lidocaine Solution Gel Gel WC - Nurse 2 - General Ulcer CM Notes Start: 02/27/24 08:37 Freq: Status: Active Protocol: Activity Type Activity Date Activity User E-sign Co-sign Detail Recorded Client Recorded Date Recorded By Document 03/02/24 08:55 [facility] 03/02/24 09:06 Document 03/09/24 08:59 [facility] 03/09/24 09:05 Document 03/16/24 08:58 [facility] 03/16/24 09:04 Document 03/23/24 09:04 [facility] 03/23/24 09:10 03/02/24 03/09/24 03/16/24 08:55 08:59 08:58 Wound Center Nurse 2 #1 POST OP CHEST INCISION -Time 08:56 08:59 08:58 -Correct Patient Yes Yes Yes -Correct Side, Site, Position Yes Yes Yes -Correct Procedure Yes Yes Yes -Procedure Performed Yes Yes Yes -Type of Procedure Debridement Debridement Debridement -Clinical Debridement Subcutaneous Subcutaneous Subcutaneous -Tissue Removed Subcutaneous Subcutaneous Subcutaneous -Post Debridement (cm) - Length 2.0 1.7 1.5 -Post Debridement (cm) - Width 1.1 0.8 0.8 -Post Debridement (cm) - Depth 0.4 0.4 0.3 -Total Square (Post) (cm) 2.20 1.36 1.20 -Area of Debridement (cm) - Length 2.0 1.7 0.5 -Area of Debridement (cm) - Width 1.1 0.8 0.8 -Total Square (Area) (cm) 2.20 1.36 0.40 -Tunneling Yes Yes No -Tunneling Position (O'clock) 8 8 -Tunneling Distance (cm) 1.3 0.9 -Undermining/Tunneling No No No -Circular Undermining No No No -Wound/Ulcer Outcome Not Healed Not Healed Not Healed -Ulcer Cleansing Rinsed/ Rinsed/ Rinsed/ Irrigated with Irrigated with Irrigated with Saline Saline Saline -Foul Odor after Cleansing No No No -Bioengineered Tissue No No No -Bleeding Controlled with Pressure Pressure Pressure -Treatment Response Procedure Procedure Procedure Tolerated Well Tolerated Well Tolerated Well -Debridement - Subq, 1st 20sq cm Yes Yes Yes Pain Scale: 0-10 Numeric Is Patient Pain Free? Yes Yes Yes 03/23/24 09:04 Wound Center Nurse 2 #1 POST OP CHEST INCISION -Time 09:07 -Correct Patient Yes -Correct Side, Site, Position Yes -Correct Procedure Yes -Procedure Performed Yes -Type of Procedure Debridement -Clinical Debridement Subcutaneous -Tissue Removed Subcutaneous -Post Debridement (cm) - Length 1.2 -Post Debridement (cm) - Width 0.7 -Post Debridement (cm) - Depth 0.2 -Total Square (Post) (cm) 0.84 -Area of Debridement (cm) - Length 1.2 -Area of Debridement (cm) - Width 0.7 -Total Square (Area) (cm) 0.84 -Tunneling Yes -Tunneling Position (O'clock) 8 -Tunneling Distance (cm) 0.3 -Undermining/Tunneling No -Circular Undermining No -Wound/Ulcer Outcome -Ulcer Cleansing -Foul Odor after Cleansing -Bioengineered Tissue -Bleeding Controlled with Pressure -Treatment Response Procedure Tolerated Well -Debridement - Subq, 1st 20sq cm Yes Pain Scale: 0-10 Numeric Is Patient Pain Free? Yes - Nurse 3 - General Ulcer D/C NN Start: 02/27/24 08:37 Freq: Status: Active Protocol: Activity Type Activity Date Activity User E-sign Co-sign Detail Recorded Client Recorded Date Recorded By Document 02/27/24 08:37 KW wound center 02/27/24 08:47 KW Document 03/02/24 09:29 RB wound center 03/02/24 09:30 RB Document 03/06/24 08:23 KW [id number] 03/06/24 08:47 KW Edit Result 03/06/24 08:23 KW (1) [id number] 03/06/24 08:48 KW Document 03/09/24 09:11 [facility] 03/09/24 09:12 GM Document 03/14/24 08:01 KW j 03/14/24 08:06 KW Document 03/16/24 11:12 RB wound 03/16/24 11:13 RB Document 03/20/24 08:14 KW l 03/20/24 08:30 KW Document 03/23/24 09:17 GM wc 03/23/24 09:17 GM (1) #1 POST OP CHEST INCISION - NPWT Application Charge NPWT > 50 sq cm ($ => NPWT </= 50 sq cm ) => (disp) ($) 02/27/24 03/02/24 03/06/24 08:37 09:29 08:23 Vital Signs Temperature (97.8 F-99.1 F) 98.8 F 98.0 F Temperature Source Temporal Temporal Pulse Rate (60-100) 101 H 99 Pulse Location Monitor Monitor Respiratory Rate (12-18) 18 18 Respiratory rate source Observation Observation Oxygen Delivery Method Room Air Room Air Blood Pressure (90/60-120/80) 134/74 H 146/79 H Blood Pressure Mean (mm Hg) 94 101 Source Monitor Monitor Position Sitting Sitting Blood Pressure Location Left Arm Right Arm Pain Scale: 0-10 Numeric Is Patient Pain Free? Yes Yes Yes Wound Care Center Nurse 3 #1 POST OP CHEST INCISION -Ulcer Cleansing Soap and Water Rinsed/ Soap and Water Irrigated with Saline -Foul Odor after Cleansing No -Negative Pressure Wound Therapy Continue Continue Continue -Setting (mmHg) 125 125 125 -Negative Pressure is Continuous Continuous Continuous -Primary Dressing Applied -NPWT Application Charge NPWT > 50 sq cm NPWT & NPWT </= 50 sq (disp) ($) Debridement (nc cm (disp) ($) ) -Mepilex Border -Promogran -Wound Comment(s) snap vac applied Treatment Response Procedure Tolerated Well WC - Visit Discharge Discharge Condition Stable Stable Stable Ambulatory Status Ambulatory Ambulatory Ambulatory Transportation Private Auto Private Auto Private Auto Medication Reconcilliation completed & No No No provided to patient/care provider Clinical Summary of Care Provided Yes Yes Yes 03/09/24 03/14/24 03/16/24 09:11 08:01 11:12 Vital Signs Temperature (97.8 F-99.1 F) 97.4 F L Temperature Source Temporal Pulse Rate (60-100) 96 Pulse Location Monitor Respiratory Rate (12-18) 16 Respiratory rate source Observation Oxygen Delivery Method Room Air Blood Pressure (90/60-120/80) 142/75 H Blood Pressure Mean (mm Hg) 97 Source Monitor Position Sitting Blood Pressure Location Right Arm Pain Scale: 0-10 Numeric Is Patient Pain Free? Yes Yes Yes Wound Care Center Nurse 3 #1 POST OP CHEST INCISION -Ulcer Cleansing Not Cleansed Soap and Water Wound Cleanser -Foul Odor after Cleansing No No -Negative Pressure Wound Therapy Continue Continue Continue -Setting (mmHg) 125 125 125 -Negative Pressure is Continuous Continuous Continuous -Primary Dressing Applied -NPWT Application Charge NPWT </= 50 sq NPWT > 50 sq cm NPWT & cm (disp) ($) (disp) ($) Debridement (nc ) -Mepilex Border -Promogran -Wound Comment(s) Treatment Response Procedure Tolerated Well WC - Visit Discharge Discharge Condition Stable Stable Stable Ambulatory Status Ambulatory Ambulatory Ambulatory Transportation Private Auto Private Auto Private Auto Medication Reconcilliation completed & No No provided to patient/care provider Clinical Summary of Care Provided Yes Yes Yes 03/20/24 03/23/24 08:14 09:17 Vital Signs Temperature (97.8 F-99.1 F) 96.8 F L Temperature Source Temporal Pulse Rate (60-100) 101 H Pulse Location Monitor Respiratory Rate (12-18) 18 Respiratory rate source Observation Oxygen Delivery Method Room Air Blood Pressure (90/60-120/80) 142/83 H Blood Pressure Mean (mm Hg) 102 Source Monitor Position Sitting Blood Pressure Location Left Forearm Pain Scale: 0-10 Numeric Is Patient Pain Free? Yes Yes Wound Care Center Nurse 3 #1 POST OP CHEST INCISION -Ulcer Cleansing Soap and Water Not Cleansed -Foul Odor after Cleansing No No -Negative Pressure Wound Therapy Continue -Setting (mmHg) 125 -Negative Pressure is Continuous -Primary Dressing Applied Mepilex Border, Promogran -NPWT Application Charge NPWT </= 50 sq cm (disp) ($) -Mepilex Border 1 -Promogran 1 -Wound Comment(s) Treatment Response WC - Visit Discharge Discharge Condition Stable Stable Ambulatory Status Ambulatory Ambulatory Transportation Private Auto Private Auto Medication Reconcilliation completed & No provided to patient/care provider Clinical Summary of Care Provided Yes Yes Assessment/Plan Assessment/Plan (1) Presence of cardiac pacemaker: CODE(S): Z95.0 - Presence of cardiac pacemaker (2) Tracheostomy dependent: CODE(S): Z93.0 - Tracheostomy status (3) Essential (primary) hypertension: CODE(S): I10 - Essential (primary) hypertension (4) Nonhealing surgical wound: CODE(S): T81.89XA - Other complications of procedures, not elsewhere classified, initial encounter QUALIFIERS: Encounter type: subsequent encounter Qualified Code(s): T81.89XD - Other complications of procedures, not elsewhere classified, subsequent encounter (5) Ulcer of chest wall with fat layer exposed: CODE(S): L98.492 - Non-pressure chronic ulcer of skin of other sites with fat layer exposed (6) Diabetes: CODE(S): E11.9 - Type 2 diabetes mellitus without complications QUALIFIERS: Diabetes mellitus type: type 2 Diabetes mellitus long wall mining machine tender insulin use: without long wall mining machine tender use Diabetes mellitus complication status: with skin complications Diabetes mellitus complication detail: with other skin ulcer Qualified Code(s): E11.622 - Type 2 diabetes mellitus with other skin ulcer PLAN: Plan Debridement performed today in clinic as annotated above. At home wound-care instructions: He is tolerating treatment with Snap-vac and has had significant improvement in the undermining of the cavity of his chest ulcer. Will discontinue Snap-vac therapy due to goal of therapy being met. Will have him use Promogran to the ulcer daily and cover with silicone foam bordered dressing for moderate drainage. Keep dressing clean and dry. Off-loading: The patient was instructed to avoid pressure and friction on the affected areas. Reposition every 2 hours at minimum. Avoid prolonged standing and/or dangling of legs. When seated, feet should be elevated at chest level. Frequent ambulation is encouraged. Diet: Patient encouraged to increase protein intake while taking caution to avoid high carbohydrate and/or sugar intake. Labs/cultures/imaging: Wound culture was positive for infection and he has been taking antibiotics and tolerating them well. Follow-up: Return in 2 weeks for wound care follow up and on Tuesday for nurse visit to apply Snap wound vac. Return sooner or report to the emergency room should symptoms worsen, or new symptoms arise. Note: [employer] speech recognition roads superintendent software was used to create portions of this document. Sound-alike and misspelled words, as well as other roads superintendent errors may be contained in the documentation.
== END 2024-03-25 23:59 | disposition home or self-care (01) ==
LOC: WC 08:30
PROVIDERS: PCP Family Medicine; Referring Provider Physician Assistant Medical; Visit Provider Family Medicine
DX: E11.622 Type 2 diabetes mellitus with other skin ulcer (principal); Z93.0 Tracheostomy status; L98.492 Non-pressure chronic ulcer of skin of other sites with fat layer exposed; Z95.0 Presence of cardiac pacemaker; I10 Essential (primary) hypertension
CPT/HCPCS: 11042; 97607; 97608

== ENCOUNTER 2024-04-06 08:25 | Outpatient (RCR) | payer MEDICARE, SELFPAY ==
[2024-03-26 00:47] VITALS: BP 167/76; PULSE 104; RESP 18; TEMP 36.8; BMI 66.6
[2024-04-06 08:28] VITALS: BP 139/76; PULSE 101; RESP 18; TEMP 36.3; BMI 66.6
--- NOTE | 2024-04-06 09:47 | PN.PCM_ITS ---
History of Present Illness Date of Service: 04/06/24 Chief Complaint: left chest non-healing surgical wound History of Wound: Primitivo is a 68 yo gentleman that presents to the wound healing center today for evaluation and treatment of a left chest wall surgical wound that has opened after suture removal and is not healing. This is at the site of a pacemaker placement on 12/16/2023 at [facility] by Dr. Glover. He noted drainage and possible infection and went to ER at [facility] on 01/25/2024. He was started on IV antibiotics with Vancomycin and the battery and pacemaker leads were removed and debridement of the pocket was done on 01/27/2024 and a temporary pacemaker was placed in his right chest. The new battery was placed in his right chest on 02/01/2024. He was switched to Ancef while in the hospital for MSSA once cultures were back from removal of the original pacemaker of his left chest wall and discharged on Cefadroxil orally to be completed on 02/10/24. He was seen on 02/14/2024 by Janae Mcduffie and his sutures were removed (4). The pocket was draining brown/bloody fluid and he was referred for treatment by Janae Mcduffie. He has been using bandage to keep the wound covered and cleaned it with surgical scrub. Primitivo reports not having any problems with wound healing in the past and the right chest wall incision from the more recent pacemaker battery placement is healing well. He does have a history of diabetes that is controlled with diet and he is not able to recall his most recent A1C. 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 Subjective Subjective Primitivo returns today for follow up of chest wall ulcer that is from pocket that pacemaker was removed from. He is healed today and has no signs of infection. He tolerated Promogran dressings. Objective Data Objective Data Vital Signs: Vital Signs Temp Pulse Resp BP 97.3 F L 101 H 18 139/76 H 04/06/24 08:28 04/06/24 08:28 04/06/24 08:28 04/06/24 08:28 Weight: 223 kg Body Mass Index (BMI) 66.6 Physical Exam Const alert, oriented x3 and no apparent distress General Appearance: cooperative and comfortable HEENT normocephalic and head/scalp atraumatic Resp normal respiratory effort Effort and Inspection: able to speak in complete sentences Cardio regular rate and regular rhythm Skin Wounds: wounds noted Wound Narrative: as in clinical panel Psych mental status grossly normal, thought process normal, cooperative and affect normal Debridement Note Debridement Note Wound debrided: left chest wall Laterality: Left Type of Debridement: Excisional debridement Anesthesia Used: 4% Lidocaine Solution and 5% Lidocaine Gel Depth: Down to and including healthy tissue and in the subcutaneous layer Percentage of wound debrided: 100 Instrument Used: 3mm curette Tissue Removed: Yellow slough, devitalized tissue Severity: Fat Layer Exposed Amount of bleeding with debridement: Mild Bleeding Controlled with: Compression and gauze Patient tolerated procedure: Patient tolerated procedure well Post-Debridement Measurements and Additional Note: Post-Debridement Measurements/Treatment WC - Nurse 1 - General Ulcer Assessment Start: 04/06/24 08:27 Freq: Status: Active Protocol: SAMI Activity Type Activity Date Activity User E-sign Co-sign Detail Recorded Client Recorded Date Recorded By Document 04/06/24 08:28 KW ' 04/06/24 08:29 KW 04/06/24 08:28 Height and Weight Body Mass Index (BMI) 66.6 BMI Classification Obese Vital Signs Temperature (97.8 F-99.1 F) 97.3 F L Temperature Source Temporal Pulse Rate (60-100) 101 H Pulse Location Monitor Respiratory Rate (12-18) 18 Respiratory rate source Observation Blood Pressure (90/60-120/80) 139/76 H Blood Pressure Mean (mm Hg) 97 Source Monitor Position Sitting Blood Pressure Location Right Arm History Since Last Visit- (Skip if this is Patient's initial visit) Have you changed medications since your No last visit? Any new allergies or adverse reactions No Had a fall/change in ADL's that may No increase risk of falls Signs or symptoms of abuse and/or No neglect since last visit Have you been in the hospital since your No last visit? Has dressing in place as prescribed Yes Has compression in place as prescribed No Left Footwear Regular Shoe Right Footwear Regular Shoe Pain Scale: 0-10 Numeric Is Patient Pain Free? Yes AMARI - Nurse 1 - General Ulcer Measurement Start: 04/06/24 08:27 Freq: Status: Active Protocol: Activity Type Activity Date Activity User E-sign Co-sign Detail Recorded Client Recorded Date Recorded By Document 04/06/24 08:29 KW ' 04/06/24 08:29 KW 07/12/24 08:29 Wound Center Nurse 1 #1 POST OP CHEST INCISION -Current Size (cm) - Length 0.1 -Current Size (cm) - Width 0.1 -Current Size (cm) - Depth 0.1 -Total Square Cm 0.01 -Date of Last Picture (Recall this 04/06/24 field) -Exudate Amt None Present -Texture ([place]-wound Skin Appearance) Assessed -Moisture ([place]-wound Skin Appearance) Assessed -Color ([place]-wound Skin Appearance) Assessed -Temperature ([place]-wound Skin No Abnormality Appearance) (Pt Warm) -Tenderness on Palpation ([place]-wound No Skin Appearance) -Wound Comment(s) SMALL SCAB WC - Nurse 2 - General Ulcer CM Notes Start: 04/06/24 08:27 Freq: Status: Active Protocol: Activity Type Activity Date Activity User E-sign Co-sign Detail Recorded Client Recorded Date Recorded By Document 04/06/24 09:11 [facility] 04/06/24 09:13 04/06/24 09:11 Wound Center Nurse 2 -Time 09:12 -Correct Patient Yes -Correct Side, Site, Position Yes -Wound/Ulcer Outcome Healed- Epithelialized Pain Scale: 0-10 Numeric Is Patient Pain Free? Yes Assessment/Plan Assessment/Plan (1) Presence of cardiac pacemaker: CODE(S): Z95.0 - Presence of cardiac pacemaker (2) Tracheostomy dependent: CODE(S): Z93.0 - Tracheostomy status (3) Essential (primary) hypertension: CODE(S): I10 - Essential (primary) hypertension (4) Nonhealing surgical wound: CODE(S): T81.89XA - Other complications of procedures, not elsewhere classified, initial encounter QUALIFIERS: Encounter type: subsequent encounter Qualified Code(s): T81.89XD - Other complications of procedures, not elsewhere classified, subsequent encounter (5) Ulcer of chest wall with fat layer exposed: CODE(S): L98.492 - Non-pressure chronic ulcer of skin of other sites with fat layer exposed (6) Diabetes: CODE(S): E11.9 - Type 2 diabetes mellitus without complications QUALIFIERS: Diabetes mellitus type: type 2 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 At home wound-care instructions: He is tolerating treatment with Snap-vac and has had significant improvement in the undermining of the cavity of his chest ulcer. Will discontinue Snap-vac therapy due to goal of therapy being met. Will have him use Promogran to the ulcer daily and cover with silicone foam bordered dressing for moderate drainage. Keep dressing clean and dry. Off-loading: The patient was instructed to avoid pressure and friction on the affected areas. Reposition every 2 hours at minimum. Avoid prolonged standing and/or dangling of legs. When seated, feet should be elevated at chest level. Frequent ambulation is encouraged. Diet: Patient encouraged to increase protein intake while taking caution to avoid high carbohydrate and/or sugar intake. Labs/cultures/imaging: Wound culture was positive for infection and he has been taking antibiotics and tolerating them well. Follow-up: Return in 2 weeks for wound care follow up and on Tuesday for nurse visit to apply Snap wound vac. Return sooner or report to the emergency room should symptoms worsen, or new symptoms arise. Note: [employer] speech recognition spring crater software was used to create portions of this document. Sound-alike and misspelled words, as well as other spring crater errors may be contained in the documentation.
--- NOTE | 2024-04-11 09:51 | WC ---
PHOTO CHEST (HEALED) 04/06/24
== END 2024-04-06 10:33 | disposition home or self-care (01) ==
LOC: WC 08:25
PROVIDERS: PCP Family Medicine; Referring Provider Physician Assistant Medical; Visit Provider Family Medicine
DX: T81.89XA Other complications of procedures, not elsewhere classified, initial encounter (principal); Z93.0 Tracheostomy status; E11.622 Type 2 diabetes mellitus with other skin ulcer; L98.492 Non-pressure chronic ulcer of skin of other sites with fat layer exposed; I10 Essential (primary) hypertension; Z95.0 Presence of cardiac pacemaker; Z85.21 Personal history of malignant neoplasm of larynx
CPT/HCPCS: 99212; G0463